=== PATIENT | female | born 1930 | race Caucasian/White ===

== ENCOUNTER 2016-03-19 22:44 | Observation (INO) | payer MEDICARE, OTHER ==
--- NOTE | 2016-03-19 23:19 | ER Document Report ---
ED Neuro Symptoms/Deficit - General Mode of Arrival: Ambulatory Information source: Patient TRAVEL OUTSIDE OF THE [place] IN LAST 30 DAYS: No - HPI Patient complains to provider of: Other - left arm and left face numbness Onset: Just prior to arrival Context: Other - see above Was STROKE ALERT Called: No Baseline Cognitive: Alert, oriented X 3 Altered sensation: LUE, L facial Associated symptoms: Other - see above <LEONORA MAK - Last Filed: 03/20/16 01:30> <MARCOS HORN - Last Filed: 03/20/16 05:39> - General Stated Complaint: LEFT ARM NUMBNESS Notes: 85 year old female presents to the ED complaining of left arm and left face numbness that started this evening. Patient states that she was initially resting in bed, but walked to the kitchen to prepare herself a bowl of grits. Patient explains that she was fumbling with the bowl and dropped the spoon when grabbing for it. Patient began to experience numbness to her left arm that radiated to her left face which lasted for approximately 30 minutes. Patient denies having difficulty moving her left fingers or hand or any difficulty talking. Patient denies being on blood thinning medication. Patient does not have a primary care provider. Patient denies having any symptoms upon examination. (LEONORA MAK) - Related Data Allergies/Adverse Reactions: No Known Allergies Allergy (Verified 12/15/15 09:21) Past Medical History - General Information source: Patient - Social History Smoking Status: Unknown if Ever Smoked Family History: None Malignancy Medical History: Reports: Hx Breast Cancer Past Surgical History: Reports: Hx Mastectomy - Right mastectomy with axillary node dissection - Immunizations Hx Diphtheria, Pertussis, Tetanus Vaccination: Yes <LEONORA MAK - Last Filed: 03/20/16 01:30> Review of Systems - Review of Systems Constitutional: No symptoms reported EENT: No symptoms reported Cardiovascular: No symptoms reported Respiratory: No symptoms reported Gastrointestinal: No symptoms reported Genitourinary: No symptoms reported Female Genitourinary: No symptoms reported Musculoskeletal: No symptoms reported Skin: No symptoms reported Hematologic/Lymphatic: No symptoms reported Neurological/Psychological: See HPI, Numbness - left arm and left face. denies : Speech impairment -: Yes All other systems reviewed and negative <LEONORA MAK - Last Filed: 03/20/16 01:30> Physical Exam - General General appearance: Alert In distress: None - HEENT Head: Normocephalic, Atraumatic Eyes: Normal Extraocular movements intact: Yes Pupils: PERRL - Respiratory Respiratory status: No respiratory distress Breath sounds: Normal - Cardiovascular Rhythm: Regular Heart sounds: Normal auscultation - Abdominal Inspection: Normal - Back Back: Normal - Extremities General upper extremity: Normal inspection, Normal ROM, Normal strength General lower extremity: Normal inspection, Normal ROM, Normal strength - Neurological Neuro grossly intact: Yes Cognition: Normal Orientation: AAOx4 [place] Coma Scale Eye Opening: Spontaneous [place] Coma Scale Verbal: Oriented [place] Coma Scale Motor: Obeys Commands [place] Coma Scale Total: 15 Speech: Normal Cranial nerves: Normal Cerebellar coordination: Normal Motor strength normal: LUE, RUE, LLE, RLE Additional motor exam normals: Equal hogshead hooper Sensory: Normal - Psychological Associated symptoms: Normal affect, Normal mood - Skin Skin Temperature: Warm Skin Moisture: Dry Skin Color: Normal <LEONORA MAK - Last Filed: 03/20/16 01:30> Course - Laboratory Result Diagrams: 03/19/16 23:08 03/19/16 23:08 <LEONORA MAK - Last Filed: 03/20/16 01:30> - Laboratory Result Diagrams: 03/19/16 23:08 03/19/16 23:08 <MARCOS HORN - Last Filed: 03/20/16 05:39> - Re-evaluation Re-evalutation: 03/20/16 Patient is an 85-year-old female who comes in with paresthesias to her left upper extremity, face, and difficulty gripping prior to arrival. Patient is not paresthesias or weakness on exam. Patient has no complaints. Symptoms are concerning for TIA. Initial blood work and head CT are within normal limits. Patient does not have a primary care doctor. No history of stroke workup. Patient will be admitted for further evaluation of her symptoms. Understands agrees with plan. (MARCOS HORN) - Vital Signs Vital signs: Temp Pulse Resp BP Pulse Ox 97.5 F 65 15 110/69 95 03/19/16 22:44 03/20/16 04:01 03/20/16 05:01 03/20/16 05:03/20/16 05:01 (MARCOS HORN) - Laboratory Laboratory results interpreted by me: 03/19/16 03/19/16 23:08 23:08 RBC 3.17 L Hgb 10.6 L Hct 32.3 L MCV 102 H RDW 15.9 H Eosinophils % 11.9 H Absolute Eosinophils 0.7 H Potassium 3.3 L Glucose 131 H Alkaline Phosphatase 28 L Total Protein 5.9 L Albumin 3.3 L (MARCOS HORN) Discharge <LEONORA MAK - Last Filed: 03/20/16 01:30> - Discharge Admitting Provider: Hospitalist Unit Admitted: Telemetry <MARCOS HORN - Last Filed: 03/20/16 05:39> - Discharge Clinical Impression: TIA (transient ischemic attack) Qualifiers: Transient cerebral ischemia type: other Qualified Code(s): G45.8 - Other transient cerebral ischemic attacks and related syndromes Condition: Stable Disposition: ADMITTED OBSERVATION Scribe Attestation: 03/20/16 05:08 I personally performed the services described in the documentation, reviewed and edited the documentation which was dictated to the scribe in my presence, and it accurately records my words and actions. (MARCOS HORN) ED [employer]/Exc Criteria - Diagnosis of TIA: -: Patient presented with transient symptoms that are now resolved and no other neurologic findings are currently present. List symptoms in comments. -: Yes -: Patient is NOT a candidate for tPA. -: Yes -: ____(put name in comment) has been consulted for admission and continued evaluation of risk factor assessment. <MARCOS HORN - Last Filed: 03/20/16 05:39>
[2016-03-19 23:24] LABS: ABSOLUTE EOSINOPHILS # (AUTO) 0.7 10^3/uL (0.0-0.6); ABSOLUTE LYMPHOCYTES (AUTO) 1.9 10^3/uL (0.5-4.7); ABSOLUTE MONOCYTES (AUTO) 0.5 10^3/uL (0.1-1.4); ABSOLUTE NEUT (AUTO) 2.9 10^3/uL (1.7-8.2); BASOPHILS % (AUTO) 0.8 % (0-2); EOSINOPHILS % (AUTO) 11.9 % (0-6); HEMATOCRIT 32.3 % (36.0-47.0); HEMOGLOBIN 10.6 g/dL (12.0-15.5); HGB HCT DIFFERENCE -0.5; LYMPHOCYTES % (AUTO) 30.9 % (13-45); MEAN CORPUSCULAR HEMOGLOBIN 33.3 pg (27.0-33.4); MEAN CORPUSCULAR HGB CONC 32.7 g/dL (32.0-36.0); MEAN CORPUSCULAR VOLUME 102 fl (80-97); PROTHROMBIN TIME 13.8 SEC (11.4-15.4); RED BLOOD COUNT 3.17 10^6/uL (3.72-5.28); RED CELL DISTRIBUTION WIDTH 15.9 % (11.5-14.0); SEGMENTED NEUTROPHILS % (AUTO) 48.4 % (42-78); WHITE BLOOD COUNT 6.1 10^3/uL (4.0-10.5)
[2016-03-19 23:47] LABS: ALANINE AMINOTRANSFERASE 9 U/L (9-52); ALBUMIN 3.3 g/dL (3.5-5.0); ALKALINE PHOSPHATASE 28 U/L (38-126); ANION GAP 9 (5-19); ASPARTATE AMINO TRANSFERASE 19 U/L (14-36); BILIRUBIN,TOTAL 1.2 mg/dL (0.2-1.3); BLOOD UREA NITROGEN 16 mg/dL (7-20); CALCIUM 8.6 mg/dL (8.4-10.2); CARBON DIOXIDE 26 mmol/L (22-30); CHLORIDE 107 mmol/L (98-107); CREATINE KINASE 96 U/L (30-135); GLUCOSE 131 mg/dL (75-110); POTASSIUM 3.3 mmol/L (3.6-5.0); SODIUM 141.9 mmol/L (137-145); TOTAL PROTEIN 5.9 g/dL (6.3-8.2)
[2016-03-19 23:57] LABS: CREATINE KINASE MB 0.53 ng/mL (<4.55)
[2016-03-20 00:09] LABS: TROPONIN I < 0.012 ng/mL
[2016-03-20] MEDS ORDERED: POTASSIUM CHLORIDE 10 MEQ TABLET.SA PO ONE (00:09)
[2016-03-20] MEDS ORDERED: ONDANSETRON HCL INJ/PF 4 MG/2 ML SDV IV PRN (08:26)
[2016-03-20] MEDS ORDERED: DOCUSATE SODIUM 100 MG CAPSULE PO PRN (08:26)
[2016-03-20] MEDS ORDERED: ASPIRIN 81 MG TABLET, ENT COATED PO PRN (08:45)
[2016-03-20] MEDS ORDERED: POTASSIUM CHLORIDE 20 MEQ/15 ML UDCUP PO ONE (08:46)
[2016-03-20] MEDS ORDERED: ENOXAPARIN SODIUM INJ 40 MG/0.4 ML DISP.SYRIN SUBCUT ONE (09:15)
--- NOTE | 2016-03-20 09:26 | PDOC H&P ---
History of Present Illness Admission Date/PCP: 03/20/16 08:27 LAURENT RIDLEY MD Patient complains of: Left upper extremity numbness History of Present Illness: JUSTUS PIMENTEL is a 85 year old female with hypertension came to the emergency room due to her left upper extremity weakness with associated numbness and tremors. It happened yesterday and eventually resolve spontaneously. The patient went to the emergency room for evaluation and was referred for observation. Head CT scan did not reveal any acute stroke. The patient denies slurring of speech, swallowing difficulty, dizziness, lower extremity weakness. Denies any headache or blurring of vision or double vision. Past Medical History Cardiac Medical History: Reports: Hypertension Malignancy Medical History: Reports: Breast Cancer Musculoskeltal Medical History: Reports: Other - Osteoporosis Psychiatric Medical History: Denies: Depression Past Surgical History Past Surgical History: Reports: Mastectomy - Right mastectomy with axillary node dissection Social History Smoking Status: Never Smoker Frequency of Alcohol Use: None Hx Recreational Drug Use: No Drugs: None Hx Prescription Drug Abuse: No Family History Family History: Malignancy Parental Family History Reviewed: Yes Children Family History Reviewed: Yes Sibling(s) Family History Reviewed.: Yes Medication/Allergy Home Medications: Raloxifene HCl [Evista 60 mg Tablet] 60 mg PO DAILY 08/20/15 Solifenacin Succinate [Vesicare] 10 mg PO DAILY 08/20/15 Aspirin [Ecotrin 81 mg EC Tablet] 81 mg PO ASDIR PRN 03/20/16 Allergies/Adverse Reactions: No Known Allergies Allergy (Verified 12/15/15 09:21) Review of Systems Constitutional: PRESENT: weakness - Left upper extremity. ABSENT: chills, fever (s), headache(s), weight gain, weight loss Eyes: ABSENT: visual disturbances Ears: ABSENT: hearing changes Nose, Mouth, and Throat: ABSENT: mouth pain, sore throat Cardiovascular: ABSENT: chest pain, dyspnea on exertion, edema, orthropnea, palpitations Respiratory: ABSENT: cough, hemoptysis Gastrointestinal: ABSENT: abdominal pain, constipation, diarrhea, hematemesis, hematochezia, nausea, vomiting Genitourinary: ABSENT: dysuria, hematuria Musculoskeletal: ABSENT: joint swelling Integumentary: ABSENT: pruritus, rash, wounds Neurological: PRESENT: focal weakness - Left upper extremity. ABSENT: abnormal gait, abnormal speech, confusion, dizziness, syncope Psychiatric: ABSENT: anxiety, depression, homidical ideation, suicidal ideation Endocrine: ABSENT: cold intolerance, heat intolerance, polydipsia, polyuria Hematologic/Lymphatic: ABSENT: easy bleeding, easy bruising Physical Exam Vital Signs: Temp Pulse Resp BP Pulse Ox 98.0 F 66 18 116/81 96 03/20/16 08:16 03/20/16 07:33 03/20/16 08:16 03/20/16 08:16 03/20/16 08:16 General appearance: PRESENT: no acute distress, thin Head exam: PRESENT: atraumatic, normocephalic Eye exam: PRESENT: conjunctiva pink, EOMI, PERRLA - Sluggish. ABSENT: scleral icterus Ear exam: PRESENT: normal external ear exam Mouth exam: PRESENT: moist, neck supple, tongue midline Neck exam: ABSENT: carotid bruit, JVD, lymphadenopathy, thyromegaly Respiratory exam: PRESENT: clear to auscultation nora. ABSENT: rales, rhonchi, wheezes Cardiovascular exam: PRESENT: RRR. ABSENT: diastolic murmur, rubs, systolic murmur Pulses: PRESENT: normal dorsalis pedis pul Vascular exam: PRESENT: normal capillary refill GI/Abdominal exam: PRESENT: normal bowel sounds, soft. ABSENT: distended, guarding, mass, organolmegaly, rebound, tenderness Rectal exam: PRESENT: deferred Extremities exam: PRESENT: full ROM. ABSENT: calf tenderness, clubbing, pedal edema Neurological exam: PRESENT: alert, awake, oriented to person, oriented to place , oriented to time, oriented to situation, CN II-XII grossly intact, other - Manual muscle testing is 4 over 5 and equal bilateral Psychiatric exam: PRESENT: appropriate affect, normal mood. ABSENT: homicidal ideation, suicidal ideation Skin exam: PRESENT: dry, intact, warm. ABSENT: cyanosis, rash Results Impressions: Chest X-Ray 03/19/16 00:00 IMPRESSION: NO ACUTE RADIOGRAPHIC FINDING IN THE CHEST. Head CT 03/19/16 00:00 IMPRESSION: MILD CHRONIC CHANGES OF ATROPHY AND MICROVASCULAR ISCHEMIA. NO ACUTE PROCESS. Assessment & Plan - Diagnosis (1) TIA (transient ischemic attack) Qualifiers: Transient cerebral ischemia type: other Qualified Code(s): G45.8 - Other transient cerebral ischemic attacks and related syndromes Is this a current diagnosis for this admission?: Yes (2) Hypokalemia Is this a current diagnosis for this admission?: Yes (3) Hyperglycemia Is this a current diagnosis for this admission?: Yes (4) Anemia of chronic disease Is this a current diagnosis for this admission?: Yes (5) Hypertension Qualifiers: Hypertension type: essential hypertension Qualified Code(s): I10 - Essential (primary) hypertension Is this a current diagnosis for this admission?: Yes (6) Osteoporosis Is this a current diagnosis for this admission?: Yes - Time Time Spent: 30 to 50 Minutes - Plan Summary Plan Summary: Patient will be placed in observation. I will put the patient on Aggrenox. Supplemental oxygen will be given and DVT prophylaxis with Lovenox and be placed. We will obtain MRI of the brain, carotid Doppler, and 2-D echocardiogram. Further testing depends and admission evaluation as outlined above. We will replace potassium and obtain hemoglobin A1c.
[2016-03-20] MEDS ORDERED: (PENDING PHARMACY ID) (Solifenacin Succinate [Vesicare] 10 MG) PO SCH (10:00)
[2016-03-20] MEDS ORDERED: ASPIRIN 325 MG TABLET, ENT COATED PO SCH (10:00)
[2016-03-20] MEDS: ASPIRIN/DIPYRIDAMOLE 25-200 MG 1 CAP.SR CPMP.12HR PO SCH ×2 (10:36→21:33)
[2016-03-20] MEDS: TOLTERODINE TARTRATE 1 MG TABLET PO SCH ×2 (10:37→21:33)
[2016-03-20] MEDS: RALOXIFENE HCL 60 MG TABLET PO SCH (11:22)
[2016-03-20] MEDS: NORMAL SALINE 1000 ML 1,000 ML IV PRN (13:00)
--- NOTE | 2016-03-20 14:57 | EKG REPORT ---
SEVERITY:- BORDERLINE ECG - SINUS RHYTHM BORDERLINE R WAVE PROGRESSION, ANTERIOR LEADS BORDERLINE T ABNORMALITIES, DIFFUSE LEADS : Confirmed by: Jr Leary 20-Mar-2016 14:56:46
--- NOTE | 2016-03-20 20:21 | XCELERA REPORT ---
[address] [address] Transthoracic Echocardiogram Report Name: JUSTUS PIMENTEL Age: 85 yrs Gender: Female : 1930 Patient Status: Inpatient Patient Location: \S\[facility]\S\A Study Date: 03/20/2016 09:36 AM Height: 62 in Weight: 103 lb BSA: 1.4 m2 Procedure: A complete two-dimensional transthoracic echocardiogram was performed (2D, M-mode, spectral and color flow Doppler). The study was technically difficult with many images being suboptimal in quality. Reason For Study: cva, hYPERTENSIVE HEARTY DISEASE Ordering Physician: BIANCA LOONEY Performed By: Kali Beverly Interpretation Summary The study was technically difficult with many images being suboptimal in quality. Left ventricular systolic function is low normal. There is borderline concentric left ventricular hypertrophy. The left ventricle is grossly normal size. Doppler measurements suggest impaired left ventricular relaxation, which is associated with grade I/IV or mild diastolic dysfunction Wall motion cannot be accurately commented on, but no definite regional wall motion abnormalities noted. The right ventricular systolic function is normal. The left atrial size is normal. The right atrium is normal in size There is no mitral valve stenosis. There is a trace to mild amount of mitral regurgitation There is a trace to mild amount of aortic regurgitation There is no aortic valve stenosis There is a trace amount of tricuspid regurgitation There is mild pulmonary hypertension by echo Right ventricular systolic pressure is estimated to be elevated at 30- 40mmHg. There is no pericardial effusion. Consider WOO if clinically indicated. May consider mobile cardiac telemetry monitoring (MCT) for ruling out transient AFIB. MMode/2D Measurements \T\ Calculations RVDd: 2.3 cm LVIDd: 4.5 cm FS: 25.8 % Ao root diam: 3.3 cm IVSd: 0.75 cm LVIDs: 3.3 cm EDV(Teich): 90.9 ml LVPWd: 0.77 cm ESV(Teich): 44.6 ml Ao root area: 8.7 cm2 EF(Teich): 50.9 % LA dimension: 3.0 cm Doppler Measurements \T\ Calculations MV E max john: MV P1/2t max john: Ao V2 max: LV V1 max P.8 cm/sec 56.8 cm/sec 121.6 cm/sec 2.0 mmHg MV A max john: MV P1/2t: 71.8 msec Ao max PG: LV V1 max: 107.6 cm/sec 5.9 mmHg 70.1 cm/sec MV E/A: 0.52 MVA(P1/2t): 3.1 cm2 MV dec slope: 231.6 cm/sec2 MV dec time: 0.24 sec PA V2 max: PI end-d john: TR max john: RAP systole: 68.1 cm/sec 65.0 cm/sec 256.5 cm/sec 10.0 mmHg PA max P.9 mmHg TR max P.3 mmHg RVSP(TR): 36.3 mmHg Left Ventricle The left ventricle is grossly normal size. There is borderline concentric left ventricular hypertrophy. Left ventricular systolic function is low normal. Doppler measurements suggest impaired left ventricular relaxation, which is associated with grade I/IV or mild diastolic dysfunction. Wall motion cannot be accurately commented on, but no definite regional wall motion abnormalities noted. Right Ventricle The right ventricle is grossly normal size. There is normal right ventricular wall thickness. The right ventricular systolic function is normal. Atria The right atrium is normal in size. The left atrial size is normal. Interarterial septum not well visualized and not well dopplered. Cannot comment on ASD/PFO presence. Mitral Valve The mitral valve leaflets are sclerotic, but show no functional abnormalities. There is no mitral valve stenosis. There is a trace to mild amount of mitral regurgitation. Aortic Valve The aortic valve is not well visualized secondary to technical limitations. There is no aortic valve stenosis. There is a trace to mild amount of aortic regurgitation. Tricuspid Valve The tricuspid valve is not well visualized, but is grossly normal. There is no tricuspid stenosis. There is a trace amount of tricuspid regurgitation. There is mild pulmonary hypertension by echo. Right ventricular systolic pressure is estimated to be elevated at 30-40mmHg. Pulmonic Valve The pulmonic valve is not well visualized. Great Vessels The aortic root is not well visualized. The inferior vena cava appeared normal and decreased > 50% with respiration (RAP 5-10 mmHg). Effusions There is no pericardial effusion. Incidental Findings Consider WOO if clinically indicated. May consider mobile cardiac telemetry monitoring (MCT) for ruling out transient AFIB. : BIANCA LOONEY > Jr Leary
[2016-03-20] MEDS: ACETAMINOPHEN 325 MG TABLET PO PRN (20:42)
[2016-03-20] MEDS: ATORVASTATIN CALCIUM 10 MG TABLET PO SCH (21:34)
[2016-03-21] MEDS: ACETAMINOPHEN 325 MG TABLET PO PRN (04:57)
[2016-03-21] MEDS: LANSOPRAZOLE 30 MG TAB.RAP.DR PO SCH (05:43)
[2016-03-21 06:02] LABS: ANION GAP 9 (5-19); BLOOD UREA NITROGEN 15 mg/dL (7-20); CALCIUM 8.9 mg/dL (8.4-10.2); CARBON DIOXIDE 22 mmol/L (22-30); CHLORIDE 111 mmol/L (98-107); CREATININE RESULT 0.71 mg/dL (0.52-1.25); GLUCOSE 89 mg/dL (75-110); POTASSIUM 3.9 mmol/L (3.6-5.0); SODIUM 142.2 mmol/L (137-145)
[2016-03-21] MEDS: ENOXAPARIN SODIUM INJ 40 MG/0.4 ML DISP.SYRIN SUBCUT SCH (08:21)
[2016-03-21] MEDS: RALOXIFENE HCL 60 MG TABLET PO SCH (10:13)
[2016-03-21] MEDS: TOLTERODINE TARTRATE 1 MG TABLET PO SCH ×2 (10:13→21:23)
[2016-03-21] MEDS: ASPIRIN/DIPYRIDAMOLE 25-200 MG 1 CAP.SR CPMP.12HR PO SCH ×2 (10:13→21:24)
--- NOTE | 2016-03-21 10:49 | PDOC PROGRESS REPORT ---
Subjective Progress Note for:: 03/21/16 Subjective:: Patient denies any worsening weakness. Left upper extremity symptoms reported yesterday result. Patient however reports she has balance issues for over a month. Denies any new weaknesses. No slurring of speech. No nausea or vomiting. No chills or fever. Physical Exam Vital Signs: Temp Pulse Resp BP Pulse Ox 97.2 F 86 20 129/69 H 98 03/21/16 07:39 03/21/16 08:00 03/21/16 08:00 03/21/16 08:00 03/21/16 08:00 Intake & Output 03/20/16 03/21/16 03/22/16 06:59 06:59 06:59 Intake Total 1745 Balance 1745 Weight 47.6 kg General appearance: PRESENT: no acute distress, cooperative Head exam: PRESENT: normocephalic Eye exam: PRESENT: EOMI Mouth exam: PRESENT: moist, neck supple Neck exam: ABSENT: JVD Respiratory exam: PRESENT: clear to auscultation nora, unlabored. ABSENT: rhonchi, wheezes Cardiovascular exam: PRESENT: RRR. ABSENT: gallop GI/Abdominal exam: PRESENT: normal bowel sounds, soft. ABSENT: distended, tenderness Extremities exam: PRESENT: other - Trace pretibial edema Neurological exam: PRESENT: alert, awake Psychiatric exam: PRESENT: normal mood Skin exam: PRESENT: dry, warm. ABSENT: cyanosis Results Laboratory Results: 03/21/16 05:07 03/21/16 05:07 Sodium 142.2 Potassium 3.9 Chloride 111 H Carbon Dioxide 22 Anion Gap 9 BUN 15 Creatinine 0.71 Est GFR ( Amer) > 60 Est GFR (Non-Af Amer) > 60 Glucose 89 Calcium 8.9 Impressions: Chest X-Ray 03/19/16 00:00 IMPRESSION: NO ACUTE RADIOGRAPHIC FINDING IN THE CHEST. Head CT 03/19/16 00:00 IMPRESSION: MILD CHRONIC CHANGES OF ATROPHY AND MICROVASCULAR ISCHEMIA. NO ACUTE PROCESS. Head MRI 03/20/16 00:00 IMPRESSION: Acute nonhemorrhagic lacunar infarct left cerebellum. Carotid Doppler Study 03/20/16 08:31 IMPRESSION: NO HEMODYNAMICALLY SIGNIFICANT STENOSIS. Assessment & Plan - Diagnosis (1) Cerebellar stroke Is this a current diagnosis for this admission?: Yes (2) TIA (transient ischemic attack) Qualifiers: Transient cerebral ischemia type: other Qualified Code(s): G45.8 - Other transient cerebral ischemic attacks and related syndromes Is this a current diagnosis for this admission?: Yes (3) Hypokalemia Is this a current diagnosis for this admission?: Yes (4) Hyperglycemia Is this a current diagnosis for this admission?: Yes (5) Anemia of chronic disease Is this a current diagnosis for this admission?: Yes (6) Hypertension Qualifiers: Hypertension type: essential hypertension Qualified Code(s): I10 - Essential (primary) hypertension Is this a current diagnosis for this admission?: Yes (7) Osteoporosis Is this a current diagnosis for this admission?: Yes - Time Time Spent with patient: 15-24 minutes - Plan Summary Plan Summary: Continue Aggrenox. Continue physical therapy. We will arrange for home health physical therapy and a front-wheeled walker. Blood pressure has been stable and normal. We will check lipid panel. Continue supportive care. If the patient remains stable we will discharge home in the morning. She is refusing to go to rehabilitation.
[2016-03-21] MEDS: ATORVASTATIN CALCIUM 10 MG TABLET PO SCH (21:24)
[2016-03-22] MEDS: NORMAL SALINE 1000 ML 1,000 ML IV PRN (02:41)
[2016-03-22] MEDS: LANSOPRAZOLE 30 MG TAB.RAP.DR PO SCH (05:31)
[2016-03-22 06:57] LABS: CHOLESTEROL 137.21 mg/dL (0-200); Direct HDL 38 mg/dL (>40); TRIGLYCERIDES 67 mg/dL (<150)
[2016-03-22 07:07] LABS: DIRECT LDL 86 mg/dL (<100)
[2016-03-22] MEDS: ENOXAPARIN SODIUM INJ 40 MG/0.4 ML DISP.SYRIN SUBCUT SCH (09:17)
[2016-03-22] MEDS: ASPIRIN/DIPYRIDAMOLE 25-200 MG 1 CAP.SR CPMP.12HR PO SCH (09:18)
[2016-03-22] MEDS: TOLTERODINE TARTRATE 1 MG TABLET PO SCH (09:19)
[2016-03-22] MEDS: RALOXIFENE HCL 60 MG TABLET PO SCH (09:19)
[2016-03-22 11:16] VITALS: BP 120/63
--- NOTE | 2016-03-22 11:37 | PDOC DISCHARGE SUMMARY ---
[id number] LAURENT RIDLEY MD Discharge Date: 03/22/16 - Discharge Diagnosis (1) Cerebellar stroke Is this a current diagnosis for this admission?: Yes (2) TIA (transient ischemic attack) Is this a current diagnosis for this admission?: Yes (3) Hypokalemia Is this a current diagnosis for this admission?: Yes (4) Hyperglycemia Is this a current diagnosis for this admission?: Yes (5) Anemia of chronic disease Is this a current diagnosis for this admission?: Yes (6) Hypertension Is this a current diagnosis for this admission?: Yes (7) Osteoporosis Is this a current diagnosis for this admission?: Yes - Additional Information Discharge Diet: Cardiac - low-fat low-salt Discharge Activity: Activity As Tolerated, Balance Activity w/Rest Home Medications: Raloxifene HCl [Evista 60 mg Tablet] 60 mg PO DAILY 08/20/15 Solifenacin Succinate [Vesicare] 10 mg PO DAILY 08/20/15 Aspirin [Ecotrin 81 mg EC Tablet] 81 mg PO ASDIR PRN 03/20/16 Aspirin/Dipyridamole [Aggrenox 25 mg/200 mg Capsule SA] 1 cap.sr PO Q12 #60 cpmp.12hr 03/22/16 Atorvastatin Calcium [Lipitor 10 mg Tablet] 10 mg PO QHS #30 tablet 03/22/16 Additional Information: Home health for physical therapy, front-wheeled walker for ambulation History of Present Illness Patient complains of: Left upper extremity weakness History of Present Illness: JUSTUS PIMENTEL is a 85 year old female with hypertension came to the emergency room due to her left upper extremity weakness with associated numbness and tremors. It happened yesterday and eventually resolve spontaneously. The patient went to the emergency room for evaluation and was referred for observation. Head CT scan did not reveal any acute stroke. The patient denies slurring of speech, swallowing difficulty, dizziness, lower extremity weakness. Denies any headache or blurring of vision or double vision. Hospital Course Hospital Course: The patient was admitted to telemetry. The patient was continued on aspirin. Patient's left upper extremity weakness resolved. However she reports gait imbalance for about a week. Carotid Doppler shows no significant hemodynamic stenosis. 2-D echocardiogram shows a normal ejection fraction with no significant valvular defect. Physical therapy was instituted and the patient did well with the rolling walker. Physical therapy recommended home health PT. This was then scheduled. MRI of the brain eventually perform showing cerebellar lacunar infarction on the left. Patient was informed and this may have occurred prior to the patient's transient ischemic attack symptoms. She refused subacute rehab facility. Patient was given Aggrenox in addition to aspirin. library monitor remained sinus. Patient wanted to go home and continue therapy on an outpatient basis. Family was informed of her diagnosis. She has caregivers at home. The rest of the hospital stays unremarkable. Physical Exam Vital Signs: Temp Pulse Resp BP Pulse Ox 98.6 F 73 16 134/69 H 94 03/22/16 10:44 03/22/16 10:44 03/22/16 10:44 03/22/16 10:44 03/22/16 10:44 Intake & Output 03/21/16 03/22/16 03/23/16 06:59 06:59 06:59 Intake Total 1745 1748 Balance 1745 1748 Weight 47.6 kg 47.7 kg General appearance: PRESENT: no acute distress, cooperative Head exam: PRESENT: normocephalic Eye exam: PRESENT: EOMI Mouth exam: PRESENT: moist, neck supple Neck exam: ABSENT: JVD Respiratory exam: PRESENT: clear to auscultation nora Cardiovascular exam: PRESENT: RRR. ABSENT: gallop GI/Abdominal exam: PRESENT: normal bowel sounds, soft. ABSENT: distended, tenderness Extremities exam: ABSENT: pedal edema Neurological exam: PRESENT: alert, awake, oriented to situation, other - Manual muscle testing is 4 over 5 bilaterally and equal Psychiatric exam: PRESENT: normal mood. ABSENT: agitated, anxious Skin exam: PRESENT: dry, warm. ABSENT: cyanosis Results Laboratory Results: 03/21/16 05:07 03/22/16 05:35 Triglycerides 67 Cholesterol 137.21 LDL Cholesterol Direct 86 VLDL Cholesterol 13.0 HDL Cholesterol 38 L Impressions: Chest X-Ray 03/19/16 00:00 IMPRESSION: NO ACUTE RADIOGRAPHIC FINDING IN THE CHEST. Head CT 03/19/16 00:00 IMPRESSION: MILD CHRONIC CHANGES OF ATROPHY AND MICROVASCULAR ISCHEMIA. NO ACUTE PROCESS. Head MRI 03/20/16 00:00 IMPRESSION: Acute nonhemorrhagic lacunar infarct left cerebellum. Carotid Doppler Study 03/20/16 08:31 IMPRESSION: NO HEMODYNAMICALLY SIGNIFICANT STENOSIS. Qualifiers PATEINT BEING DISCHARGED WITH ANY OF THE FOLLOWING DIAGNOSIS?: Stroke Stroke Pt being discharged on Anti-thrombolytic therapy?: No Reason(s) for not prescribing Anti-thrombolytic therapy:: Not indicated Stroke Pt being discharged on Anti-coagulation therapy?: Yes Stroke Pt being discharged on Statins?: Yes Plan Discharge Plan: Appointment with primary care physician in 3-5 days. Time Spent: Less than 30 Minutes
== END 2016-03-22 11:00 | disposition home or self-care (01) ==
LOC: ER 22:44 → UNDOADMOB 03-20 05:27 → EH 03-20 05:27 → 3W 03-20 13:27
PROVIDERS: ADMIT Family Medicine; ATTEND Family Medicine
DX: I63.9 Cerebral infarction, unspecified (principal); E87.6 Hypokalemia; R73.9 Hyperglycemia, unspecified; I10 Essential (primary) hypertension; M81.0 Age-related osteoporosis without current pathological fracture; Z79.82 Long term (current) use of aspirin; Z85.3 Personal history of malignant neoplasm of breast; Z90.11 Acquired absence of right breast and nipple; Z79.810 Long term (current) use of selective estrogen receptor modulators (SERMs)
CPT/HCPCS: 93005; 99285; 96372; 36415 ×4; 82553; 82550; 85025; 85610; 85730; 80048; 80053; 84484; 83036; 80061; 93306; 93880; 70551; 71010; 70450; 93010; 97163; G0378 ×4; A9270 ×17; J1650 ×3; J3490 ×3; J2405; J7030 ×2; G8978; G8979

== ENCOUNTER 2016-04-02 11:01 | Emergency (ER) | payer MEDICARE, OTHER ==
[2016-04-02 11:35] LABS: PARTIAL THROMBOPLASTIN TIME 29.2 SEC (23.5-35.8)
[2016-04-02 11:36] LABS: ABSOLUTE EOSINOPHILS # (AUTO) 0.4 10^3/uL (0.0-0.6); ABSOLUTE LYMPHOCYTES (AUTO) 1.6 10^3/uL (0.5-4.7); ABSOLUTE MONOCYTES (AUTO) 0.6 10^3/uL (0.1-1.4); BASOPHILS % (AUTO) 0.5 % (0-2); EOSINOPHILS % (AUTO) 5.5 % (0-6); HEMATOCRIT 34.5 % (36.0-47.0); HEMOGLOBIN 10.7 g/dL (12.0-15.5); HGB HCT DIFFERENCE -2.4; LYMPHOCYTES % (AUTO) 20.9 % (13-45); MEAN CORPUSCULAR HEMOGLOBIN 32.5 pg (27.0-33.4); MEAN CORPUSCULAR VOLUME 105 fl (80-97); MONOCYTES % (AUTO) 7.6 % (3-13); RED BLOOD COUNT 3.28 10^6/uL (3.72-5.28); RED CELL DISTRIBUTION WIDTH 15.5 % (11.5-14.0); SEGMENTED NEUTROPHILS % (AUTO) 65.5 % (42-78); WHITE BLOOD COUNT 7.7 10^3/uL (4.0-10.5)
[2016-04-02 11:38] LABS: PROTHROMBIN TIME 14.2 SEC (11.4-15.4)
[2016-04-02 11:49] LABS: ALANINE AMINOTRANSFERASE 13 U/L (9-52); ALBUMIN 3.8 g/dL (3.5-5.0); ALKALINE PHOSPHATASE 33 U/L (38-126); ANION GAP 12 (5-19); ASPARTATE AMINO TRANSFERASE 13 U/L (14-36); BILIRUBIN,TOTAL 0.8 mg/dL (0.2-1.3); BLOOD UREA NITROGEN 21 mg/dL (7-20); CALCIUM 8.8 mg/dL (8.4-10.2); CARBON DIOXIDE 24 mmol/L (22-30); CHLORIDE 108 mmol/L (98-107); CREATINE KINASE 28 U/L (30-135); CREATININE RESULT 0.97 mg/dL (0.52-1.25); GLUCOSE 54 mg/dL (75-110); SODIUM 143.9 mmol/L (137-145); TOTAL PROTEIN 6.1 g/dL (6.3-8.2)
--- NOTE | 2016-04-02 11:51 | ER Document Report ---
ED Neuro Symptoms/Deficit - General Stated Complaint: MENTAL STATUS Information source: Patient Notes: Patient is a very sweet 85-year-old female with past medical history as recorded who presents today feeling "a little lightheaded" with some numbness and weakness to the right hand only here this occurred around 5 AM. She states it lasted around one hour and then resolved. She denies any headache, neck pain , chest pain, abdominal pain, weakness or numbness. She denies any fevers or dysuria, or flank pain. Patient supposedly was just discharged from a similar event around a week ago according to the patient. She denies any symptoms at this time. TRAVEL OUTSIDE OF THE [place] IN LAST 30 DAYS: No - HPI Patient complains to provider of: Other - See above Onset: Other - See above Awoke with symptoms: Yes Symptoms are: Noted on awakening Duration: Better, Gone now Quality of pain: No pain Severity: Mild Pain Level: Denies Context: None Loss of consciousness: No loss of consciousness Baseline Cognitive: Alert, oriented X 3 Baseline Gait: Walks w/o assistance Alert To: Name/Voice Patient Orientation: Person, Place, Time Altered sensation: RUE Vision problem/glaucoma: No Associated symptoms: Other - See above Similar symptoms previously: Yes Recently seen / treated by doctor: Yes - Related Data Allergies/Adverse Reactions: No Known Allergies Allergy (Verified 04/02/16 11:31) Past Medical History - General Information source: Patient - Social History Smoking Status: Unknown if Ever Smoked Cigarette use (# per day): No Chew tobacco use (# tins/day): No Smoking Education Provided: No Frequency of alcohol use: None Family History: Malignancy - Past Medical History Cardiac Medical History: Reports: Hx Hypertension Malignancy Medical History: Reports: Hx Breast Cancer Psychiatric Medical History: Denies: Hx Depression Past Surgical History: Reports: Hx Mastectomy - Right mastectomy with axillary node dissection - Immunizations Hx Diphtheria, Pertussis, Tetanus Vaccination: Yes Review of Systems - Review of Systems Constitutional: denies: Fever EENT: denies: Eye discharge, Nose discharge Cardiovascular: denies: Chest pain, Palpitations, Heart racing, Syncope Respiratory: denies: Cough, Short of breath Gastrointestinal: denies: Vomiting Genitourinary: denies: Dysuria Musculoskeletal: denies: Leg swelling Skin: Other - no hives. denies: Rash Neurological/Psychological: Other - no slurred speech -: Yes All other systems reviewed and negative Physical Exam - Vital signs Vitals: Pulse Resp BP Pulse Ox 79 18 114/69 100 04/02/16 11:07 04/02/16 11:07 04/02/16 11:07 04/02/16 11:07 Notes: Reviewed vital signs and nursing note as charted by RN. CONSTITUTIONAL: Alert and oriented and responds appropriately to questions. Well -appearing; well-nourished HEAD: Normocephalic; atraumatic EYES: PERRL; Conjunctivae clear, sclerae non-icteric ENT: Normal nose; no rhinorrhea; moist mucous membranes; pharynx without lesions noted NECK: Supple without meningismus; non-tender; no carotid bruits; no cervical lymphadenopathy, no masses CARD: Regular rate and rhythm; no murmurs, no clicks, no rubs, no gallops; symmetric distal pulses RESP: Normal chest excursion without splinting or tachypnea; breath sounds clear and equal bilaterally; no wheezes, no rhonchi, no rales ABD/GI: Normal bowel sounds; non-distended; soft, non-tender, no rebound, no guarding; no palpable organomegaly or masses BACK: The back appears normal and is non-tender to palpation, there is no CVA tenderness EXT: Normal ROM in all joints; non-tender to palpation; no cyanosis, no effusions, no edema SKIN: Normal color for age and race; warm; dry; good turgor; capillary refill < 2 seconds; no acute lesions noted NEURO: CN II through XII are intact. Patient has 5 out of 5 bilateral upper and lower extremity strength with sensation intact to light touch. PSYCH: The patient's mood and manner are appropriate. Grooming and personal hygiene are appropriate. Course - Re-evaluation Re-evalutation: 04/02/16 11:58 Patient was called a code stroke upon arrival. The stroke was activated. Radiologist called and states that the CT scan shows no acute abdomen allergies. Possible meningioma that is present. NIH score is 0. I do not believe the patient is therefore TPA candidate given the onset of symptoms, and the patient being symptom free at this time within NIH score of 0. Patient states she did not take her aspirin today. 325 has been provided. EKG shows a heart of 79, normal sinus rhythm, normal axis, no obvious ST elevation or depression. Flattened T waves in leads V4 and V5. Inverted T waves in lead 3. Old EKG from 03/19/2016 shows no obvious appreciable change. 04/02/16 12:23 Still no change in mental status. Still no weakness or numbness. I reviewed the patient's previous hospitalization recently showing a normal carotid Doppler and 2-D echo with an MRI showing a possible left cerebellar lacunar infarct. 04/02/16 14:30 MRI of the head has been performed. Still no focal logical deficits. Vital signs are stable. Glucose as recorded. Patient is not a diabetic. We have provided some nourishment and we'll obtain a urinalysis. 04/02/16 15:53 MRI of the brain as recorded. No new acute lesions. Patient still has no focal neurological deficits. Blood pressure is very stable. I have called and spoken to the hospitalist who states that there are no real new studies that they would be able to perform here in this facility. He recommended possibly an outpatient WOO. I called and spoke directly to the patient's primary care physician as well as the patient's daughter and they both are happy with the patient going home and following up with the primary care physician as an outpatient. I believe this is reasonable given the history, physical, recent imaging, and the patient's current state. Accu-Chek recorded repeated is 93. Patient denies any symptoms at this time. - Vital Signs Vital signs: Temp Pulse Resp BP Pulse Ox 97.8 F 79 18 114/69 100 04/02/16 13:03 04/02/16 13:03 04/02/16 13:03 04/02/16 13:03 04/02/16 13:03 - Laboratory Result Diagrams: 04/02/16 11:23 04/02/16 11:23 Laboratory results interpreted by me: 04/02/16 04/02/16 04/02/16 11:18 11:23 11:23 RBC 3.28 L Hgb 10.7 L Hct 34.5 L MCV 105 H MCHC 31.0 L RDW 15.5 H Chloride 108 H BUN 21 H Est GFR (Non-Af Amer) 54 L Glucose 54 L POC Glucose 63 L AST 13 L Alkaline Phosphatase 33 L Creatine Kinase 28 L Total Protein 6.1 L Critical Care Note - Critical Care Note Total time excluding time spent on procedures (mins): 35 Discharge - Discharge Clinical Impression: Numbness of right hand Condition: Good Disposition: HOME, SELF-CARE Additional Instructions: Please come back immediately with any return of any weakness or numbness, any fevers or vomiting, any chest pain, shortness of breath, or any other acute problems. Please make sure that you follow-up with your primary care physician by calling [phone] to schedule an appointment for this coming week.
[2016-04-02 12:00] LABS: CREATINE KINASE MB 0.38 ng/mL (<4.55)
[2016-04-02] MEDS ORDERED: ASPIRIN 325 MG TABLET PO ONE (12:00)
[2016-04-02 12:02] LABS: TROPONIN I < 0.012 ng/mL
--- NOTE | 2016-04-02 12:54 | EKG REPORT ---
SEVERITY:- BORDERLINE ECG - SINUS RHYTHM BORDERLINE T WAVE ABNORMALITIES : Confirmed by: Yuliya Pineda MD 02-Apr-2016 12:53:38
[2016-04-02 17:08] LABS: APPEARANCE,URINE CLOUDY; BILIRUBIN,URINE NEGATIVE (NEGATIVE); GLUCOSE, URINE NEGATIVE (NEGATIVE); KETONES,URINE NEGATIVE (NEGATIVE); LEUKOCYTE ESTERASE,URINE MODERATE (NEGATIVE); NITRITE,URINE NEGATIVE (NEGATIVE); PROTEIN,URINE 100 mg/dL (NEGATIVE); URINE SPECIFIC GRAVITY 1.011; UROBILINOGEN,URINE NEGATIVE mg/dL (<2.0)
[2016-04-02 17:41] VITALS: BP 120/66
== END 2016-04-02 17:30 | disposition home or self-care (01) ==
LOC: ER 11:01
DX: R20.0 Anesthesia of skin (principal); I10 Essential (primary) hypertension; Z79.82 Long term (current) use of aspirin; Z85.3 Personal history of malignant neoplasm of breast
CPT/HCPCS: 93005; 99291; 36415; 82553; 82962; 82550; 85025; 85610; 85730; 80053; 81001; 84484; 70551; 71010; 70450; 93010; A9270

== ENCOUNTER → 2016-04-05 | Outpatient (CLI) | payer MEDICARE, OTHER | LOC: RAD 15:16 | PROVIDERS: ATTEND Internal Medicine Medical Oncology | DX: Z85.3 Personal history of malignant neoplasm of breast (principal); Z90.11 Acquired absence of right breast and nipple | CPT/HCPCS: 78815; A9552 ==

== ENCOUNTER 2016-05-07 08:17 | Emergency (ER) | payer MEDICARE, OTHER ==
[2016-05-07] MEDS ORDERED: LIDOCAINE 1% INJ-PF (10 MG/ML) 30 ML SDV INJ ONE (08:49)
--- NOTE | 2016-05-07 09:20 | ER Document Report ---
ED Head/Face/Scalp Injury - General Chief Complaint: Head Injury Stated Complaint: FALL/HEAD PAIN Mode of Arrival: Ambulatory Information source: Patient Notes: 86-year-old female presents to the emergency department complaining of laceration to right eyebrow. Patient reports was at home when she tripped on her clothing, lost her footing, and fell striking the right side of her face/ head on her hardwood floor. 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 Denies loss of consciousness, vision changes, head or neck pain, extremity weakness or paresthesias. TRAVEL OUTSIDE OF THE [place] IN LAST 30 DAYS: No - HPI Patient complains to provider of: Laceration Injury to: Eyebrow Occurred: This morning Where: Home Timing: Still present Context: Fell Loss consciousness: No loss of consciousness Remembers: Injury, Coming to hospital - Related Data Allergies/Adverse Reactions: No Known Allergies Allergy (Verified 05/07/16 08:21) Past Medical History - General Information source: Patient - Social History Smoking Status: Never Smoker Chew tobacco use (# tins/day): No Frequency of alcohol use: None Drug Abuse: None Lives with: Family Family History: Malignancy Patient has suicidal ideation: No Patient has homicidal ideation: No - Past Medical History Cardiac Medical History: Reports: Hx Hypertension Renal/ Medical History: Denies: Hx Peritoneal Dialysis Malignancy Medical History: Reports: Hx Breast Cancer GI Medical History: Reports: Hx Gastroesophageal Reflux Disease Psychiatric Medical History: Denies: Hx Depression Past Surgical History: Reports: Hx Mastectomy - Right mastectomy with axillary node dissection - Immunizations Hx Diphtheria, Pertussis, Tetanus Vaccination: Yes Review of Systems - Review of Systems Constitutional: No symptoms reported EENT: See HPI Cardiovascular: No symptoms reported Respiratory: No symptoms reported Gastrointestinal: No symptoms reported Genitourinary: No symptoms reported Female Genitourinary: No symptoms reported Musculoskeletal: No symptoms reported Skin: See HPI Hematologic/Lymphatic: No symptoms reported Neurological/Psychological: No symptoms reported -: Yes All other systems reviewed and negative Physical Exam - Vital signs Vitals: Temp Pulse Resp BP Pulse Ox 97.6 F 97 16 108/59 L 99 05/07/16 08:23 05/07/16 08:23 05/07/16 08:23 05/07/16 08:23 05/07/16 08:23 Interpretation: Normal - General General appearance: Appears well, Alert - HEENT Head: Normocephalic, Open wounds. No: Mix's sign, Racoon's eyes Eyes: Normal Conjunctiva: Normal Extraocular movements intact: Yes Eyelashes: Normal Pupils: PERRL Nerve palsy: No Visual osorio normal: Yes Ears: Normal External canal: Normal Tympanic membrane: Normal Sinus: Normal Nasal: Normal Mouth/Lips: Normal Mucous membranes: Normal, Moist Pharynx: Normal. No: Blood in hypopharynx, Erythema, Exudate, Peritonsillar abscess, Post nasal drainage, Retropharyngeal abscess, Tonsillar hypertrophy, Uvular edema, Potential airway comprom., Other Neck: Normal. No: Anterior cervical chain, Posterior cervical chain, Lymphadenopathy, Meningismus, Subcutaneous emphysema - Respiratory Respiratory status: No respiratory distress Chest status: Nontender Breath sounds: Normal Chest palpation: Normal - Cardiovascular Rhythm: Regular Heart sounds: Normal auscultation Murmur: No Pulses: Normal: Radial Normal capillary refill: Yes - Abdominal Inspection: Normal Distension: No distension Bowel sounds: Normal Tenderness: Nontender Organomegaly: No organomegaly - Back Back: Normal, Nontender. No: Tender, Deformity/step-off, CVA tenderness, Vertebra tenderness, Scars, Scoliosis, Wounds, Other - Extremities General upper extremity: Normal inspection, Nontender, Normal color, Normal ROM , Normal strength, Normal temperature. No: Tender, Edema General lower extremity: Normal inspection, Nontender, Normal color, Normal ROM , Normal strength, Normal temperature, Normal weight bearing. No: Tender, Edema , Gricelda's sign Knee: Abrasion - Mild superficial abrasion to superior anterior right knee. No tenderness, pain, swelling, bruising. Full range of motion and neurovascular function intact.. 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 Mild localized tenderness and surrounding bruising/ hematoma. No instability or depression. No involvement of the eye structures and extraocular movements intact. Course - Re-evaluation Re-evalutation: 05/07/16 10:20 Patient hemodynamically stable, in no distress, neurologically intact. CT scan shows facial soft tissue hematoma without acute fracture or intracranial injury. Right eyebrow laceration thoroughly irrigated/cleansed and wound edges approximated with interrupted sutures. Patient tolerated well. Patient appears stable for discharge and agrees with home care, follow-up with PCP, and ED return precautions. - Vital Signs Vital signs: Temp Pulse Resp BP Pulse Ox 98.6 F 86 20 134/66 H 97 05/07/16 10:45 05/07/16 10:45 05/07/16 10:45 05/07/16 10:45 05/07/16 10:45 - Diagnostic Test Radiology reviewed: Image reviewed, Reports reviewed Procedures - Laceration/Wound Repair Right Face Time completed: 10:05 Wound length (cm): 2 Wound's Depth, Shape: Superficial, Linear Laceration pre-procedure: Sterile PPE donned, Sterile drapes applied Anesthetic type: 1% Lidocaine Volume Anesthetic (mLs): 3 Wound explored: Clean, No foreign body removed Irrigated w/ Saline (mLs): 500 Wound Debrided: Minimal Wound Repaired With: Sutures Suture Size/Type: 5:0, Nylon Number of Sutures: 3 Layer Closure?: No Post-procedure wound care: Sterile dressing applied - With bacitracin ointment Post-procedure NV exam normal: Yes Complications: No Adult Head Front/Back picture: 1 - Laceration Discharge - Discharge Clinical Impression: Fall Qualifiers: Encounter type: initial encounter Qualified Code(s): W19.XXXA - Unspecified fall, initial encounter Eyebrow laceration Qualifiers: Encounter type: initial encounter Laterality: right Qualified Code(s): S01.111A - Laceration without foreign body of right eyelid and periocular area, initial encounter Facial contusion Qualifiers: Encounter type: initial encounter Qualified Code(s): S00.83XA - Contusion of other part of head, initial encounter Condition: Stable Disposition: HOME, SELF-CARE Additional Instructions: HEAD INJURY PRECAUTIONS: At this point, there is no evidence that your head injury is serious. Observation is necessary, however. Take only clear liquids for the first few hours, unless told otherwise by the doctor. If no pain medication was prescribed, you may take acetaminophen according to the directions on the bottle. Do not take any medication that may alter your level of alertness (unless you've discussed it with the doctor first) . Limit activity for the first 24 hours. Bed rest is best. During the first 24 hours, check to see approximately every two to three hours that the patient is easily arousable, responds normally, and can perform common tasks such as walking without difficulty. Contact your doctor or go to the hospital if any of the following things occur: Persistent vomiting, difficulty in arousing the patient, worsening or continued headache, or failure to improve as expected. Head injuries can cause symptoms that persist for a few days or even a few weeks. CONTUSION: Your injury has resulted in a contusion -- a crushing of the deep tissues. No injury to important structures was detected during the physician's exam. Contusions vary in the amount of pain they cause, and in the length of time required for healing. Typically, the area will become bruised, and will remain painful to touch for two or three weeks. However, most patients are back to working and playing within a few days. After the initial period of rest and cold-packs, your symptoms (together with the doctor's recommendations) will determine how rapidly you can get back to full activity. Usually this means "do what feels okay, but don't do things that hurt." If re-examination was recommended, it's important to follow up as instructed. Call the doctor or return any time if pain increases, if swelling becomes severe, if you develop numbness or weakness in an injured extremity, or if any other alarming symptoms occur. Facial Laceration A laceration on the face usually heals quickly. Our treatment goal will be to avoid an unsightly scar or stitch-jackson. Your cut has been closed with the best techniques to avoid scarring, but a great deal depends on how well you protect the laceration -- and on your inherited tendency to scar. As facial cuts are usually caused by a blunt injury, it's usually best to rest for a day to avoid swelling. Do not allow any bumping or rubbing of the area. Keep the stitches dry. Follow the treatment plan the doctor has discussed with you and DO NOT DELAY getting the stitches out. Once stitches are removed, continue to protect the area from trauma and sunlight (use a sunscreen) for about six months. If any signs of infection occur (swelling, redness, increasing tenderness, red streaks, tender lumps in the neck or near the ear on the side of the laceration, or fever), see the doctor immediately. ICE PACKS: Apply ice packs frequently against the painful area. Many different schedules are recommended, such as "20 minutes on, 20 minutes off" or "one hour ice, two hours rest." If you need to work, you may need to go longer between ice treatments. You should plan to have the area ice packed AT LEAST one fourth of the time. The ice should be applied over the wrap, tape, or splint, or over a layer of cloth -- not directly against the skin. Some ice bags have a built-in cloth and can be put directly on the skin. Acetaminophen Acetaminophen may be taken for pain relief or fever control. It's much safer than aspirin, offering a wider range of "safe" dosages. It is safe during . Some brand names are Tylenol, Panadol, Datril, Anacin 3, Tempra, and Liquiprin. Acetaminophen can be repeated every four hours. The following are maximum recommended dosages: WEIGHT Dose Drops Elixir Chewable( 80mg) (LBS.) drprs=droppers tsp=teaspoon 6 40 mg .4 ml (1/2) 6-11 80 mg .8 ml (full) 1/2 tsp 1 tab 12-16 120 mg 1 1/2 drprs 3/4 tsp 1 1/2 tabs 17-23 160 mg 2 drprs 1 tsp 2 tabs 24-30 240 mg 3 drprs 1 1/2 tsp 3 tabs 30-35 320 mg 2 tsp 4 tabs 36-41 360 mg 2 1/4 tsp 4 1 /2 tabs 42-47 400 mg 2 1/2 tsp 5 tabs 48-53 480 mg 3 tsp 6 tabs 54-59 520 mg 3 1/4 tsp 6 1 /2 tabs 60-64 560 mg 3 1/2 tsp 7 tabs 65-70 600 mg 3 3/4 tsp 7 1 /2 tabs 71-76 640 mg 4 tsp 8 tabs 77-82 720 mg 4 1/2 tsp 9 tabs 83-88 800 mg 5 tsp 10 tabs >89 pounds or adults 650 mg to 900 mg Acetaminophen can be repeated every four hours. Maximum daily dose not to exceed 4000 mg. These maximum recommended dosages are slightly higher than the dosages written on the product container, but these dosages are very safe and well below the toxic dosage for acetaminophen. ANTIBIOTIC OINTMENT PROTECTION: After cleansing, you should apply a thin coating of antibiotic ointment ( Bacitracin, not Neosporin) to the wounds at least three times daily. This lessens infection risk, and may decrease the amount of scarring. Use a q-tip or dull butter knife, not your finger, to apply this ointment. Any debris or ooze which builds up in the ointment should be gently rubbed off with a sterile gauze pad. Harder crusting may need to be gently scrubbed off with a clean wash cloth with soap and warm water, perhaps applying a warm, wet wash cloth to the wound for ten minutes first. Development of redness, severe itching, or blistering may mean allergy to the ointment. See the doctor. FOLLOW-UP CARE: Your sutures should be removed in 5 days. To facilitate a timely removal of your sutures, you may return to the Emergency Department at [facility]. You do not need to call for an appointment, but the best time to come in for suture removal is early in the morning. If you have been referred to another physician for follow-up care, call that physicians office for an appointment as you were instructed. If you experience a significant change in your laceration, or if you are concerned there may be an infection (swelling, redness, drainage, increasing tenderness, red streaks, tender lumps in the armpit or groin above the laceration, or fever) , return to the Emergency Department immediately re-evaluation. Referrals: LAURENT RIDLEY MD [ACTIVE STAFF] - Follow up in 3-5 days
[2016-05-07 10:47] VITALS: BP 134/66
== END 2016-05-07 10:45 | disposition home or self-care (01) ==
LOC: ER 08:17
PROC: 0HQ1XZZ Repair Face Skin, External Approach (ICD-10-PCS; principal; 2016-05-07)
DX: S01.111A Laceration without foreign body of right eyelid and periocular area, initial encounter (principal); S80.211A Abrasion, right knee, initial encounter; W01.0XXA Fall on same level from slipping, tripping and stumbling without subsequent striking against object, initial encounter; Y92.009 Unspecified place in unspecified non-institutional (private) residence as the place of occurrence of the external cause; R42 Dizziness and giddiness; I10 Essential (primary) hypertension; Z85.3 Personal history of malignant neoplasm of breast
CPT/HCPCS: 12011; 99283; 70450; 70486; J3490

== ENCOUNTER 2016-05-12 16:10 | Emergency (ER) | payer MEDICARE, OTHER ==
--- NOTE | 2016-05-12 16:44 | ER Document Report ---
ED Medical Screen (RME) - General Stated Complaint: FACIAL,HAND TINGLING Time seen by provider: 16:44 Mode of Arrival: Ambulatory Information source: Patient Notes: 86-year-old female complaining of tingling in all 10 of her fingers and both sets of her toes for a week. She also has episodes of dizziness. Her cardiac doctor- dr. santiago sent her to the emergency room to be checked out for possible mini strokes. 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 He was also seen in the emergency department May 07 after falling and the CT showed no acute changes I have greeted and performed a rapid initial assessment of this patient. A comprehensive ED assessment, evaluation of the patient, analysis of test results , and completion of the medical decision making process will be conducted by additional ED providers. TRAVEL OUTSIDE OF THE [place] IN LAST 30 DAYS: No - Related Data Allergies/Adverse Reactions: No Known Allergies Allergy (Verified 05/07/16 08:21) Past Medical History - Past Medical History Cardiac Medical History: Reports: Hx Hypertension Renal/ Medical History: Denies: Hx Peritoneal Dialysis Malignancy Medical History: Reports: Hx Breast Cancer GI Medical History: Reports: Hx Gastroesophageal Reflux Disease Psychiatric Medical History: Denies: Hx Depression Past Surgical History: Reports: Hx Mastectomy - Right mastectomy with axillary node dissection - Immunizations Hx Diphtheria, Pertussis, Tetanus Vaccination: Yes Physical Exam - Vital signs Vitals: Temp Pulse Resp BP Pulse Ox 98.0 F 91 14 116/59 L 96 05/12/16 16:16 05/12/16 16:16 05/12/16 16:16 05/12/16 16:16 05/12/16 16:16 Course - Vital Signs Vital signs: Temp Pulse Resp BP Pulse Ox 98.0 F 91 14 116/59 L 96 05/12/16 16:16 05/12/16 16:16 05/12/16 16:16 05/12/16 16:16 05/12/16 16:16
[2016-05-12 17:35] LABS: PROTHROMBIN TIME 13.5 SEC (11.4-15.4)
[2016-05-12 17:36] LABS: PARTIAL THROMBOPLASTIN TIME 23.6 SEC (23.5-35.8)
[2016-05-12 17:44] LABS: ABSOLUTE LYMPHOCYTES (AUTO) 0.5 10^3/uL (0.5-4.7); ABSOLUTE MONOCYTES (AUTO) 0.1 10^3/uL (0.1-1.4); ABSOLUTE NEUT (AUTO) 6.3 10^3/uL (1.7-8.2); EOSINOPHILS % (AUTO) 0.1 % (0-6); HEMATOCRIT 34.9 % (36.0-47.0); HEMOGLOBIN 11.5 g/dL (12.0-15.5); HGB HCT DIFFERENCE -0.4; LYMPHOCYTES % (AUTO) 7.4 % (13-45); MEAN CORPUSCULAR HEMOGLOBIN 34.5 pg (27.0-33.4); MEAN CORPUSCULAR VOLUME 105 fl (80-97); RED BLOOD COUNT 3.34 10^6/uL (3.72-5.28); RED CELL DISTRIBUTION WIDTH 18.9 % (11.5-14.0); SEGMENTED NEUTROPHILS % (AUTO) 91.5 % (42-78); WHITE BLOOD COUNT 6.9 10^3/uL (4.0-10.5)
[2016-05-12 17:51] LABS: ALANINE AMINOTRANSFERASE 26 U/L (9-52); ALBUMIN 3.5 g/dL (3.5-5.0); ALKALINE PHOSPHATASE 48 U/L (38-126); ANION GAP 10 (5-19); ASPARTATE AMINO TRANSFERASE 17 U/L (14-36); BILIRUBIN,TOTAL 0.8 mg/dL (0.2-1.3); BLOOD UREA NITROGEN 22 mg/dL (7-20); CALCIUM 8.8 mg/dL (8.4-10.2); CARBON DIOXIDE 24 mmol/L (22-30); CHLORIDE 105 mmol/L (98-107); CREATININE RESULT 0.85 mg/dL (0.52-1.25); GLUCOSE 206 mg/dL (75-110); POTASSIUM 4.6 mmol/L (3.6-5.0); SODIUM 139.2 mmol/L (137-145); TOTAL PROTEIN 6.3 g/dL (6.3-8.2)
[2016-05-12 17:52] LABS: CREATINE KINASE < 20 U/L (30-135)
[2016-05-12 18:03] LABS: CREATINE KINASE MB 0.29 ng/mL (<4.55)
[2016-05-12 18:04] LABS: TROPONIN I < 0.012 ng/mL
--- NOTE | 2016-05-12 18:14 | ER Document Report ---
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 Patient notes the tingling only occurs when she squeezes her fingers. Denies any weakness numbness otherwise. Patient denies any chest pain shortness breath difficulty breathing TRAVEL OUTSIDE OF THE [place] IN LAST 30 DAYS: No - HPI Onset: Last week Onset/Duration: Intermittent Quality of pain: No pain Severity: Mild Pain Level: Denies Associated symptoms: Other Exacerbated by: Other - When she squeezes her fingers Relieved by: Denies Similar symptoms previously: Yes Recently seen / treated by doctor: Yes - Related Data Allergies/Adverse Reactions: No Known Allergies Allergy (Verified 05/07/16 08:21) Past Medical History - General Information source: Patient - Social History Smoking Status: Never Smoker Cigarette use (# per day): No Chew tobacco use (# tins/day): No Smoking Education Provided: No Family History: Malignancy Patient has suicidal ideation: No Patient has homicidal ideation: No - Past Medical History Cardiac Medical History: Reports: Hx Hypertension Renal/ Medical History: Denies: Hx Peritoneal Dialysis Malignancy Medical History: Reports: Hx Breast Cancer GI Medical History: Reports: Hx Gastroesophageal Reflux Disease Psychiatric Medical History: Denies: Hx Depression Past Surgical History: Reports: Hx Mastectomy - Right mastectomy with axillary node dissection - Immunizations Hx Diphtheria, Pertussis, Tetanus Vaccination: Yes Review of Systems - Review of Systems Notes: PHYSICAL EXAMINATION: GENERAL: Well-appearing, well-nourished and in no acute distress. HEAD: Ecchymosis of the right orbital region EYES: Pupils equal round and reactive to light, extraocular movements intact, conjunctiva are normal. ENT: Nares patent, oropharynx clear without exudates. Moist mucous membranes. NECK: Normal range of motion, supple without lymphadenopathy LUNGS: Breath sounds clear to auscultation bilaterally and equal. No wheezes rales or rhonchi. HEART: Regular rate and rhythm without murmurs ABDOMEN: Soft, nontender, nondistended abdomen. No guarding, no rebound. No masses appreciated. Female : deferred Musculoskeletal: Normal range of motion, no pitting or edema. No cyanosis. NEUROLOGICAL: Cranial nerves grossly intact. Normal speech, normal gait. Normal sensory, motor exams PSYCH: Normal mood, normal affect. SKIN: Warm, Dry, normal turgor, no rashes or lesions noted. Physical Exam - Vital signs Vitals: Temp Pulse Resp BP Pulse Ox 98.0 F 91 14 116/59 L 96 05/12/16 16:16 05/12/16 16:16 05/12/16 16:16 05/12/16 16:16 05/12/16 16:16 Course - Re-evaluation Re-evalutation: 05/12/16 18:[address] Patterson who agrees todays symptoms do not sound like a stroke 05/12/16 23:16 Given that the patient's presentation does not appear to have any specific symptoms similar to a CVA I do not expect any life-threatening issues. Patient is under a lot of stress, and does appear to have paresthesias secondary to movement. Therefore I do not believe there is any life-threatening issues, i reviewed patients previous imaging and note only 1 cva, pt has already been encouraged to see neurologst and daughter will have her go to [facility] for follow up. After performing a Medical Screening Examination, I estimate there is LOW risk for INTRACRANIAL HEMORRHAGE, ISCHEMIC CVA, MALIGNANT DYSRHYTHMIA, ACUTE CORONARY SYNDROME, MENINGITIS, PULMONARY EMBOLISM, or SEPSIS thus I consider the discharge disposition reasonable. The patient and I have discussed the diagnosis and risks, and we agree with discharging home with close follow-up with the understanding that symptoms and presentations can change. We also discussed returning to the Emergency Department immediately if new or worsening symptoms occur. We have discussed the symptoms which are most concerning (e.g., changing or worsening pain, weakness, vomiting, fever) that necessitate immediate return. - Vital Signs Vital signs: Temp Pulse Resp BP Pulse Ox 97.7 F 86 16 121/83 97 05/12/16 18:03 05/12/16 18:00 05/12/16 18:03 05/12/16 18:03 05/12/16 18:03 - Laboratory Result Diagrams: 05/12/16 17:20 05/12/16 17:20 Laboratory results interpreted by me: 05/12/16 05/12/16 17:20 17:20 RBC 3.34 L Hgb 11.5 L Hct 34.9 L MCV 105 H MCH 34.5 H RDW 18.9 H Seg Neutrophils % 91.5 H Lymphocytes % 7.4 L Monocytes % 1.0 L BUN 22 H Glucose 206 H Creatine Kinase < 20 L - Diagnostic Test Radiology reviewed: Image reviewed, Reports reviewed - EKG Interpretation by Me EKG shows normal: Sinus rhythm, [place], Intervals, QRS Complexes Discharge - Discharge Clinical Impression: Neuropathy Eyebrow laceration Qualifiers: Encounter type: subsequent encounter Laterality: right Qualified Code(s): S01.111D - Laceration without foreign body of right eyelid and periocular area, subsequent encounter Condition: Stable Disposition: HOME, SELF-CARE Instructions: Neuropathy ([facility]) Additional Instructions: Follow up with your physician tomorrow for further care or return to the ED IMMEDIATELY if symptoms worsen or new concerns occur Referrals: LAURENT RIDLEY MD [Primary Care Provider] - Follow up as needed
[2016-05-12 18:42] VITALS: BP 121/83
--- NOTE | 2016-05-12 22:45 | EKG REPORT ---
SEVERITY:- NORMAL ECG - SINUS RHYTHM : Confirmed by: Jr Leary 12-May-2016 22:44:36
== END 2016-05-12 18:45 | disposition home or self-care (01) ==
LOC: ER 16:10
DX: S01.111D Laceration without foreign body of right eyelid and periocular area, subsequent encounter (principal); W19.XXXD Unspecified fall, subsequent encounter; G62.9 Polyneuropathy, unspecified; I10 Essential (primary) hypertension; Z86.73 Personal history of transient ischemic attack (TIA), and cerebral infarction without residual deficits; Z85.3 Personal history of malignant neoplasm of breast
CPT/HCPCS: 36415; 70450; 71010; 80053; 82550; 82553; 84484; 85025; 85610; 85730; 93005; 93010; 99284

== ENCOUNTER → 2017-03-10 | Day surgery (SDC) | payer MEDICARE, OTHER ==
[~2017-03-10] MED LIST: LIDOCAINE 1%/EPINEPHRINE INJ 20 ML VIAL ONE
--- NOTE | 2017-03-15 11:11 | RADIOLOGY REPORT (SQ) ---
EXAM DESCRIPTION: STEREO BREAST BX; LEFT DIG DX MAMMO NO CHG; STEREO BREAST BX EACH ADDT'L COMPLETED DATE/TIME: 03/10/2017 12:58 pm; 03/10/2017 1:22 pm; 03/10/2017 12:59 pm REASON FOR STUDY: MICROCALCS (R92.0), LUMP IN LEFT BREAST (N63.20), HX BREAST CA (Z85.3); LEFT BREAS T; R92.2 N63.20 UNSPECIFIED LUMP IN THE LEFT BREAST, UNSPECIFIED QUAD Z85.3 PERSONAL HISTORY OF MAL IGNANT NEOPLASM OF BREAST R92.0 MAMMOGRAPHIC MICROCALCIFICATION FOUND ON DX IMAGING OF COMPARISON: 02/05/2017 TECHNIQUE: Vacuum-assisted stereotactic-guided biopsy of the lesion in the left breast. Serial progr ess stereotactic and single digital images acquired. PROCEDURE: The procedure was discussed with the patient, including possible complications such as bleeding, infection, nondiagnostic sample or possible findings such as atypical ductal hyperplasia wh ich would require additional surgery. Possible clip placement was explained. The patient agreed t o the procedure. The patient was placed prone on the stereotactic table. The lesions in the breast were localized st ereotactically. The skin of the left breast was prepped in sterile fashion. LEFT breast 12 o'clock position 6 cm from the nipple: Superficial and deep local anesthesia was provided. A small incision was made in the skin and the b iopsy probe was advanced to the target. Using the vacuum-assisted core biopsy device, multiple core specimens were obtained. Continuous low dose infusion of local anesthesia was used during the proced ure. Using qahsziwm-vu-tjycixzc technique a pellet clip was deployed at the biopsy site. Mammographi c image confirmed presence of the clip. The probe was then removed and hemostasis obtained with ma nual compression. A specimen radiograph was obtained. The radiograph demonstrated calcifications of concern in the bio psy tissue. LEFT breast 12 o'clock position 4 cm from the nipple: Superficial and deep local anesthesia was provided. A small incision was made in the skin and the b iopsy probe was advanced to the target. Using the vacuum-assisted core biopsy device, multiple core specimens were obtained. Continuous low dose infusion of local anesthesia was used during the proced ure. Using tcakvpvv-lz-wqwhcuve technique a barrel clip was deployed at the biopsy site. Mammographi c image confirmed presence of the clip. The probe was then removed and hemostasis obtained with ma nual compression. A specimen radiograph was obtained. The radiograph demonstrated calcifications of concern in the biop sy tissue. A compression bandage was applied. Postoperative instructions were explained to the patient. POST-PROCEDURE TWO VIEW DIGITAL MAMMOGRAM: An additional two view mammogram was recorded in the [facility] mammographic suite. Marker clip is present at the biopsy site. LIMITATIONS: None. 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 POST PROCEDURE MAMMOGRAMS FOR MARKER PLACEMENT: Yes IMPRESSION: SUCCESSFUL STEREOTACTIC-GUIDED BIOPSY OF THE LESION IN THE LEFT BREAST. BIOPSY RESULTS ARE CONCORDANT WITH IMAGING FINDINGS. 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 FOLLOW-UP: PATIENT CAN RESUME ROUTINE SCREENING SCHEDULE DETERMINED BY HER AND HER PHP. NOTIFICATION: THE PATIENT HAS BEEN PERSONALLY NOTIFIED OF THE RESULTS BY THE BREAST INTERVENTIONAL TE AM. ADDITIONAL INTERVENTION, IF NEEDED, HAS BEEN SCHEDULED. BI-RADS 6 Known biopsy-proven malignancy. Appropriate action should be taken. COMMENT: Patient medication list reviewed: Yes- Quality ID# [id number]:Eligible professional attests to doc umenting in the medical record they obtained, updated, or reviewed the patient's current medications. These results were discussed with Alexus at Dr. Magana's office, 1100 hours 03/15/2017. Findings wer e also discussed with the patient's daughter. TECHNICAL DOCUMENTATION: JOB ID: [id number] [employer]- All Rights Reserved
--- NOTE | 2017-03-15 11:11 | RADIOLOGY REPORT (SQ) ---
EXAM DESCRIPTION: STEREO BREAST BX; LEFT DIG DX MAMMO NO CHG; STEREO BREAST BX EACH ADDT'L COMPLETED DATE/TIME: 03/10/2017 12:58 pm; 03/10/2017 1:22 pm; 03/10/2017 12:59 pm REASON FOR STUDY: MICROCALCS (R92.0), LUMP IN LEFT BREAST (N63.20), HX BREAST CA (Z85.3); LEFT BREAS T; R92.2 N63.20 UNSPECIFIED LUMP IN THE LEFT BREAST, UNSPECIFIED QUAD Z85.3 PERSONAL HISTORY OF MAL IGNANT NEOPLASM OF BREAST R92.0 MAMMOGRAPHIC MICROCALCIFICATION FOUND ON DX IMAGING OF COMPARISON: 02/05/2017 TECHNIQUE: Vacuum-assisted stereotactic-guided biopsy of the lesion in the left breast. Serial progr ess stereotactic and single digital images acquired. PROCEDURE: The procedure was discussed with the patient, including possible complications such as bleeding, infection, nondiagnostic sample or possible findings such as atypical ductal hyperplasia wh ich would require additional surgery. Possible clip placement was explained. The patient agreed t o the procedure. The patient was placed prone on the stereotactic table. The lesions in the breast were localized st ereotactically. The skin of the left breast was prepped in sterile fashion. LEFT breast 12 o'clock position 6 cm from the nipple: Superficial and deep local anesthesia was provided. A small incision was made in the skin and the b iopsy probe was advanced to the target. Using the vacuum-assisted core biopsy device, multiple core specimens were obtained. Continuous low dose infusion of local anesthesia was used during the proced ure. Using sqaohvlr-lp-empnkbga technique a pellet clip was deployed at the biopsy site. Mammographi c image confirmed presence of the clip. The probe was then removed and hemostasis obtained with ma nual compression. A specimen radiograph was obtained. The radiograph demonstrated calcifications of concern in the bio psy tissue. LEFT breast 12 o'clock position 4 cm from the nipple: Superficial and deep local anesthesia was provided. A small incision was made in the skin and the b iopsy probe was advanced to the target. Using the vacuum-assisted core biopsy device, multiple core specimens were obtained. Continuous low dose infusion of local anesthesia was used during the proced ure. Using tgplzkpq-jp-pcjlkjyu technique a barrel clip was deployed at the biopsy site. Mammographi c image confirmed presence of the clip. The probe was then removed and hemostasis obtained with ma nual compression. A specimen radiograph was obtained. The radiograph demonstrated calcifications of concern in the biop sy tissue. A compression bandage was applied. Postoperative instructions were explained to the patient. POST-PROCEDURE TWO VIEW DIGITAL MAMMOGRAM: An additional two view mammogram was recorded in the [facility] mammographic suite. Marker clip is present at the biopsy site. LIMITATIONS: None. 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 POST PROCEDURE MAMMOGRAMS FOR MARKER PLACEMENT: Yes IMPRESSION: SUCCESSFUL STEREOTACTIC-GUIDED BIOPSY OF THE LESION IN THE LEFT BREAST. BIOPSY RESULTS ARE CONCORDANT WITH IMAGING FINDINGS. 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 FOLLOW-UP: PATIENT CAN RESUME ROUTINE SCREENING SCHEDULE DETERMINED BY HER AND HER PHP. NOTIFICATION: THE PATIENT HAS BEEN PERSONALLY NOTIFIED OF THE RESULTS BY THE BREAST INTERVENTIONAL TE AM. ADDITIONAL INTERVENTION, IF NEEDED, HAS BEEN SCHEDULED. BI-RADS 6 Known biopsy-proven malignancy. Appropriate action should be taken. COMMENT: Patient medication list reviewed: Yes- Quality ID# [id number]:Eligible professional attests to doc umenting in the medical record they obtained, updated, or reviewed the patient's current medications. These results were discussed with Alexus at Dr. Magana's office, 1100 hours 03/15/2017. Findings wer e also discussed with the patient's daughter. TECHNICAL DOCUMENTATION: JOB ID: [id number] [employer]- All Rights Reserved
== END ==
LOC: RAD 09:57
PROVIDERS: ATTEND Internal Medicine Medical Oncology
PROC: 0HBU3ZX Excision of Left Breast, Percutaneous Approach, Diagnostic (ICD-10-PCS; principal; 2017-03-10)
DX: R92.0 Mammographic microcalcification found on diagnostic imaging of breast (principal); N63.20 Unspecified lump in the left breast, unspecified quadrant; Z85.3 Personal history of malignant neoplasm of breast; R92.2 Inconclusive mammogram
CPT/HCPCS: 88305 ×2; 88342; 19081; 19082; J3490

== ENCOUNTER 2017-06-16 08:25 | Day surgery (SDC) | payer MEDICARE, OTHER ==
[2017-06-09 10:36] LABS: HEMATOCRIT 35.2 % (36.0-47.0); HEMOGLOBIN 11.8 g/dL (12.0-15.5); MEAN CORPUSCULAR HEMOGLOBIN 34.5 pg (27.0-33.4); MEAN CORPUSCULAR HGB CONC 33.4 g/dL (32.0-36.0); MEAN CORPUSCULAR VOLUME 103 fl (80-97); PLATELET COUNT 171 10^3/uL (150-450); RED BLOOD COUNT 3.41 10^6/uL (3.72-5.28); RED CELL DISTRIBUTION WIDTH 14.6 % (11.5-14.0); WHITE BLOOD COUNT 4.5 10^3/uL (4.0-10.5)
[2017-06-09 10:54] LABS: ALANINE AMINOTRANSFERASE 18 U/L (9-52); ALBUMIN 3.6 g/dL (3.5-5.0); ALKALINE PHOSPHATASE 28 U/L (38-126); ANION GAP 5 (5-19); ASPARTATE AMINO TRANSFERASE 20 U/L (14-36); BILIRUBIN,DIRECT 0.2 mg/dL (0.0-0.4); BILIRUBIN,TOTAL 1.1 mg/dL (0.2-1.3); BLOOD UREA NITROGEN 11 mg/dL (7-20); CALCIUM 8.9 mg/dL (8.4-10.2); CARBON DIOXIDE 33 mmol/L (22-30); CHLORIDE 106 mmol/L (98-107); GLUCOSE 61 mg/dL (75-110); POTASSIUM 3.9 mmol/L (3.6-5.0); SODIUM 144.4 mmol/L (137-145); TOTAL PROTEIN 5.7 g/dL (6.3-8.2)
--- NOTE | 2017-06-09 23:20 | EKG REPORT ---
SEVERITY:- BORDERLINE ECG - SINUS RHYTHM BORDERLINE R WAVE PROGRESSION, ANTERIOR LEADS : Confirmed by: Jr Leary 09-Jun-2017 23:19:50
[~2017-06-16 08:25] MED LIST changes: +CEFAZOLIN 1 GM/D5W RTU 1 GM/50 ML RTUPB IV PRN; +LACTATED RINGERS 1000 ML IV PRN; +LIDOCAINE 0.5% INJ-PF (5 MG/ML) 50 ML SDV SUBCUT PRN; -LIDOCAINE 1%/EPINEPHRINE INJ 20 ML VIAL ONE
[2017-06-16] MEDS ORDERED: METHYLENE BLUE 50 MG/10 ML AMPULE ONE (08:46)
[2017-06-16] MEDS ORDERED: MICROFIBRILLAR COLLAGEN 1 GM PACK ONE (08:46)
[2017-06-16] MEDS ORDERED: LIDOCAINE 1%/EPINEPHRINE INJ 20 ML VIAL ONE (08:47)
[2017-06-16] MEDS ORDERED: FENTANYL CITRATE INJ/PF 100 MCG/2 ML AMPUL ONE ×2 (10:58)
[2017-06-16] MEDS ORDERED: LIDOCAINE 2% INJ-PF (20 MG/ML) 10 ML AMPUL ONE (10:58)
[2017-06-16] MEDS ORDERED: MIDAZOLAM 2 MG/2 ML INJ ONE (10:58)
[2017-06-16] MEDS ORDERED: EPHEDRINE SULFATE INJ 50 MG/1 ML AMPULE ONE (10:59)
[2017-06-16] MEDS ORDERED: ACETAMINOPHEN 100 ML IV ONE (10:59)
[2017-06-16] MEDS ORDERED: ONDANSETRON HCL INJ/PF 4 MG/2 ML SDV ONE (10:59)
[2017-06-16] MEDS ORDERED: DEXAMETHASONE SOD PHOSPHATE INJ 4 MG/1 ML VIAL ONE (10:59)
[2017-06-16] MEDS ORDERED: PROPOFOL INJ 200 MG/20 ML VIAL IV ONE (10:59)
[2017-06-16] MEDS ORDERED: OXYCODONE-ACETAMINOPHEN 5-325 MG TABLET PO PRN ×3 (12:06→12:34)
[2017-06-16] MEDS ORDERED: MEPERIDINE HCL/PF INJ 25 MG/1 ML DISP.SYRIN IV PRN (12:06)
[2017-06-16] MEDS ORDERED: DIPHENHYDRAMINE HCL 50 MG/ML VIAL IV PRN (12:06)
[2017-06-16] MEDS ORDERED: FENTANYL CITRATE INJ/PF 100 MCG/2 ML AMPUL IV PRN ×3 (12:06)
[2017-06-16] MEDS ORDERED: PROMETHAZINE HCL INJ 25 MG/1 ML VIAL IV PRN ×2 (12:06)
[2017-06-16] MEDS ORDERED: MORPHINE SULFATE 10 MG/ML INJ IV PRN (12:06)
--- NOTE | 2017-06-16 12:32 | Operative Report ---
Operative Report DATE OF SURGERY: 06/16/17 PREOPERATIVE DIAGNOSIS: 1. Multi focal DCIS left breast. 2. Remote history of an invasive right breast carcinoma, status post mastectomy POSTOPERATIVE DIAGNOSIS: Same OPERATION: Left simple mastectomy with drainage of chest wall SURGEON: CARLOS EDUARDO WASSERMAN 1ST PROCESSING ENGINEER: VIKA JAEGER ANESTHESIA: GA TISSUE REMOVED OR ALTERED: Left breast COMPLICATIONS: None ESTIMATED BLOOD LOSS: 10 cc INTRAOPERATIVE FINDINGS: See below PROCEDURE: The patient was seen in the preop ambulatory surgery area where a thorough discussion was had between Dr. Wasserman, the patient, the patient's daughter, and the patient's niece. Initially there was some uncertainty as to which operation we were to perform ;After a thorough review of the patient's known disease, multifocal DCIS in the left breast, I reiterated the value of proceeding with simple mastectomy with to ensure removal of all breast tissue which may contain occult deposits of DCIS previously undetected by preoperative imaging. The patient and family expressed their understanding and agreed to proceed. Patient was taken to the operating room where general anesthesia was induced. Left arm was abducted, left breast axilla and draped in sterile fashion. Surgical plan and surgical timeout were conducted Markings were made on the skin for a classic simple mastectomy. Patient's previous stereotactically directed core biopsies were performed at the 12 o' clock position of the left breast. Skin was anesthetized with 1% plain lidocaine. Superior skin flap was raised. During the dissection, we encountered what appeared to be 1 of the small stereotactically located clip markers. Therefore an additional thin strip of skin was excised along with the superior edge of the initial lesion, and the flap was taken all the way up to the subclavicular position. The inferior skin flap was raised uneventfully and the lateral pocket developed so that the breast could not be taken directly off of the pectoralis muscle and serratus anterior muscle including superficial fascia. This was performed all using electrocautery, gentle traction; small vessels were clipped or cauterized as encountered. The specimen was marked with a large long suture in the lateral position and a short suture in the superior position and sent with appropriate documentation to pathology for permanent analysis. We reinspected the left chest wall and there was no mechanical bleeding. A large Yuval drain was placed through the inframammary skin fold, secured to the skin with 2-0 Prolene suture, and the mastectomy incision closed with running 2- 0 Vicryl suture. Skin glue was applied. The operation was deemed complete, patient extubated, and taken to recovery room in stable condition. The physician shampoo assistant, Ms. Nagel, provided assistance during this case by: Assisting by retracting tissue, instillation of local anesthesia and closure of skin incisions.
--- NOTE | 2017-06-16 12:34 | Discharge Summary ---
Discharge Summary (SDC) - Discharge Final Diagnosis: DCIS left breast Date of Surgery: 06/16/17 Discharge Date: 06/16/17 Condition: Stable Treatment or Instructions: [facility] [address] [place] [id number] Care Instructions Following Your Mastectomy Activities: Resume normal activities when you feel comfortable. It is best to remain as active as possible to speed your recovery. It is common to experience some fatigue after surgery and you may find that short naps are helpful. Avoid strenuous activity such as weight lifting, tennis, etc at your surgical site for two weeks. Perform gentle arm exercises daily and do not favor your operative arm to due increased risk of mobility issues postoperatively. No driving for 7 days after surgery. Do not drive if you are taking pain medication other than Tylenol or Ibuprofen. No swimming, tub baths or soaking in a hot tub for 4 weeks. There are no dietary restrictions. Do not smoke as this impairs wound healing. Surgical Site care: Remove your dressing 48 hours after surgery. Leave the steri-strips underneath in place. You may shower after removing the dressing to include washing the wound with soap and water using your hands. Do not scrub the incision. Pat the area dry with a towel. You do not need to recover the wound although some patients find that they feel more comfortable using a light dressing for a few days to absorb any minimal drainage which may occur. Many patients also find that keeping a dressing around the drain exit site is helpful to absorb any drainage which may leak around the tubing. If you use a dressing in this manner change it at least every day. Do not use heating pad or apply an ice pack to the operative site. You may apply deodorant if you are careful to avoid getting it on the wound itself. Empty the bulbs attached to the drain every 12 hours and measure the fluid output separately from each drain. Please also strip each drain each time you empty it to prevent clogging. Keep a record of the output and bring this record with you each time you come to the office for postoperative care. A drain is ready to be removed when its output is 30 mL per 24 hours per drain for 2 consecutive days. Please call the office to inform our staff that you need to come in for drain removal. Medications: Take Motrin (ibuprofen) 600 mg to 800 mg every 8 hours around the clock. You may taper this medication as you experience less pain. Take narcotic pain control such as Tylenol #3 or Percocet one to tablets every six hours as needed for breakthrough pain. Do not take over the counter Tylenol if you are taking either Tylenol #3 or Percocet. Again, you cannot drive while taking narcotic pain medication. Resume all of your normal prescription medications after your surgery unless instructed otherwise. You may experience constipation after surgery while taking pain medications. If using a narcotic on a regular basis, take a stool softener such as Colace twice a day. It is helpful to stay hydrated by drinking lots of fluids. Walking is also helpful and is good exercise after surgery. If you need extra help, use Milk of Magnesia according to the directions on the package. Follow-up: Call our office at to make a follow-up appointment in 10-14 days. Your doctor will call to discuss the pathology report with you as soon as it is available. Concerns: If you had a sentinel lymph node biopsy with your mastectomy, your urine may have a greenish discoloration. This is normal and will resolve as the blue dye slowly leaves your system. If you notice significant leakage around the drains , this is not normal. The drains may be clogged. Please call our office to come in immediately for the drains to be checked. Some bruising may occur and will go away over time. If you have a fever of 101.5 or greater, chills, redness at the incision site, excessive drainage from your wound or severe pain not relieved by pain medication, call your doctor. A physician is available 24 hours a day 7 days a week in addition to regular office hours. If problems arise after normal office hours please call the hospital at . Please call if you have any questions or concerns. Prescriptions: Ketorolac Tromethamine [Toradol 10 mg Tablet] 10 mg PO Q6HP PRN #20 tablet PRN Reason: Referrals: LAURENT RIDLEY MD [Primary Care Provider] - Discharge Diet: As Tolerated Discharge Activity: Activity As Tolerated Report the Following to Your Physician Immediately: Increase in Pain, Fever over 101 Degrees, Unusual Bleeding, Redness, Drainage-Foul Smelling
[2017-06-16] MEDS ORDERED: FLUMAZENIL INJ 0.5 MG/5 ML VIAL ONE (14:46)
[2017-06-16 15:02] VITALS: BP 146/86
--- NOTE | 2017-06-16 16:40 | WOMENS IMAGING REPORT ---
EXAM DESCRIPTION: BREAST SPECIMEN COMPLETED DATE/TIME: 06/16/2017 4:07 pm REASON FOR STUDY: LT BREAST FOR CLIPS C50.912 MALIGNANT NEOPLASM OF UNSPECIFIED SITE OF LEFT FEMAL COMPARISON: Stereotactic images 03/10/2017, post left stereotactic biopsy mammograms 03/10/2017 TECHNIQUE: Specimen radiograph from breast procedure performed in the operating room. LIMITATIONS: None. FINDINGS: Mastectomy specimen and pathology tissue blocks were radiographed. The dumbbell-shaped clip placed during stereotactic biopsy 03/10/2017 is identified in the specimen. The bullet shaped clip placed during stereotactic biopsy 03/10/2017 is not identified. These findings were discussed with Dr. Murphy. IMPRESSION: Specimen radiograph. TECHNICAL DOCUMENTATION: JOB ID: [id number] Reading location - IP/workstation name: [email or web address]
[2017-06-16] MEDS ORDERED: SUCCINYLCHOLINE CHLORIDE INJ 200 MG/10 ML VIAL ONE (18:11)
== END 2017-06-16 14:45 | disposition home or self-care (01) ==
LOC: OROUT 08:25
PROVIDERS: ATTEND Surgery
PROC: 0HTU0ZZ Resection of Left Breast, Open Approach (ICD-10-PCS; principal; 2017-06-16 10:30)
DX: C50.912 Malignant neoplasm of unspecified site of left female breast (principal); E03.9 Hypothyroidism, unspecified; R01.1 Cardiac murmur, unspecified; Z85.3 Personal history of malignant neoplasm of breast; Z85.828 Personal history of other malignant neoplasm of skin; Z79.899 Other long term (current) drug therapy
CPT/HCPCS: 93005; 36415; 85027; 80053; 88342 ×2; 88307 ×2; 93010; 76098; 19303; J3490 ×3; J2250; J0690; J1100; J3010; J0330; J2405; J2704; J0131; 400; Q9968

== ENCOUNTER → 2017-10-19 | Outpatient (CLI) | payer MEDICARE, OTHER ==
--- NOTE | 2017-10-19 12:40 | RADIOLOGY REPORT (SQ) ---
EXAM DESCRIPTION: KNEE RIGHT 3 VIEWS COMPLETED DATE/TIME: 10/19/2017 10:41 am REASON FOR STUDY: PAIN IN RIGHT KNEE M25.561 PAIN IN RIGHT KNEE COMPARISON: None. NUMBER OF VIEWS: Two views. TECHNIQUE: AP, lateral, and sunrise patella radiographic images acquired of the right knee. LIMITATIONS: None. FINDINGS: MINERALIZATION: Normal. BONES: No acute fracture or dislocation. No worrisome bone lesions. JOINT: Joint space narrowing medial and patellofemoral compartments. Osteophytes medial compartment OTHER: No other significant finding. IMPRESSION: Osteoarthritis. TECHNICAL DOCUMENTATION: JOB ID: [id number] [employer]- All Rights Reserved Reading location - IP/workstation name: [email or web address]
== END ==
LOC: OD 10:25
PROVIDERS: ATTEND Family Medicine
DX: M25.561 Pain in right knee (principal)

== ENCOUNTER 2018-03-21 11:08 | Emergency (ER) | payer MEDICARE, OTHER ==
[2018-03-21] MEDS ORDERED: LIDOCAINE 2% URO-JET 5 ML KIT MM ONE (11:22)
--- NOTE | 2018-03-21 12:25 | RADIOLOGY REPORT (SQ) ---
EXAM DESCRIPTION: KUB/ABDOMEN (SINGLE VIEW) COMPLETED DATE/TIME: 03/21/2018 12:04 pm REASON FOR STUDY: constipation COMPARISON: None. NUMBER OF VIEWS: One view. TECHNIQUE: Supine radiographic image of the abdomen acquired. LIMITATIONS: None. FINDINGS: BOWEL GAS PATTERN: Normal bowel gas pattern. No dilated loops. CALCIFICATIONS: No suspicious calcifications. SOFT TISSUES: No gross mass or suggestion of organomegaly. HARDWARE: None in the abdomen. BONES: No acute fracture. No worrisome bone lesions. OTHER: No other significant finding. IMPRESSION: NO RADIOGRAPHIC EVIDENCE FOR ACUTE ABDOMINAL DISEASE. TECHNICAL DOCUMENTATION: JOB ID: [id number] [employer]- All Rights Reserved Reading location - IP/workstation name: [email or web address]
--- NOTE | 2018-03-21 14:40 | ER Document Report ---
ED General - General Chief Complaint: Constipation Stated Complaint: CONSTIPATION Time Seen by Provider: 03/21/18 11:20 TRAVEL OUTSIDE OF THE [place] IN LAST 30 DAYS: No - HPI Patient complains to provider of: Constipation Notes: Patient coming in for evaluation of constipation states that she has been unable to have bowel movement for the last 2 days that has been significant. Patient denies any fever chills nausea vomiting diarrhea patient states still placing flatus. Patient states she was given enemas at home. At time of discharge daughter did arrive giving further information that she is given her mother multiple enemas along with magnesium citrate. States patient complains of some stomach cramps - Related Data Allergies/Adverse Reactions: No Known Allergies Allergy (Verified 06/02/17 13:19) Past Medical History - Social History Smoking Status: Unknown if Ever Smoked Family History: Malignancy Patient has suicidal ideation: No Patient has homicidal ideation: No - Past Medical History Cardiac Medical History: Denies: Hx Coronary Artery Disease, Hx Heart Attack, Hx Hypertension Pulmonary Medical History: Reports: Hx Pneumonia - 2016 Denies: Hx Asthma, Hx Bronchitis, Hx COPD Neurological Medical History: Reports: Hx Cerebrovascular Accident - 2017. Denies: Hx Seizures Renal/ Medical History: Denies: Hx Peritoneal Dialysis Malignancy Medical History: Reports: Hx Breast Cancer GI Medical History: Reports: Hx Gastroesophageal Reflux Disease Musculoskeletal Medical History: Reports Hx Arthritis - HANDS Psychiatric Medical History: Denies: Hx Depression Past Surgical History: Reports: Hx Mastectomy - Right mastectomy with axillary node dissection - Immunizations Hx Diphtheria, Pertussis, Tetanus Vaccination: Yes Review of Systems - Review of Systems Constitutional: No symptoms reported EENT: No symptoms reported Cardiovascular: No symptoms reported Respiratory: No symptoms reported Gastrointestinal: Constipation Genitourinary: No symptoms reported Female Genitourinary: No symptoms reported Musculoskeletal: No symptoms reported Skin: No symptoms reported Hematologic/Lymphatic: No symptoms reported Neurological/Psychological: No symptoms reported Physical Exam - Vital signs Vitals: Temp Pulse Resp BP Pulse Ox 99.4 F 70 16 153/69 H 99 03/21/18 11:09 03/21/18 11:09 03/21/18 11:09 03/21/18 11:09 03/21/18 11:09 Interpretation: Normal - General General appearance: Appears well, Alert - HEENT Head: Normocephalic, Atraumatic Eyes: Normal Pupils: PERRL - Respiratory Respiratory status: No respiratory distress Chest status: Nontender Breath sounds: Normal Chest palpation: Normal - Cardiovascular Rhythm: Regular Heart sounds: Normal auscultation Murmur: No - Abdominal Inspection: Normal Distension: No distension Bowel sounds: Normal Tenderness: Nontender Organomegaly: No organomegaly - Rectal Notes: No bleeding no hemorrhoids no impaction of stool - Back Back: Normal, Nontender - Extremities General upper extremity: Normal inspection, Nontender, Normal color, Normal ROM, Normal temperature General lower extremity: Normal inspection, Nontender, Normal color, Normal ROM, Normal temperature, Normal weight bearing. No: Gricelda's sign - Neurological Neuro grossly intact: Yes Cognition: Normal Orientation: AAOx4 [employer] Coma Scale Eye Opening: Spontaneous [employer] Coma Scale Verbal: Oriented [place] Coma Scale Motor: Obeys Commands [employer] Coma Scale Total: 15 Speech: Normal Motor strength normal: LUE, RUE, LLE, RLE Sensory: Normal - Psychological Associated symptoms: Normal affect, Normal mood - Skin Skin Temperature: Warm Skin Moisture: Dry Skin Color: Normal Course - Re-evaluation Re-evalutation: 03/21/18 15:07 Patient is evaluation does not show overt constipation x-rays otherwise negative. Patient will be discharged home will encourage patient to drink plenty of fluids and to take Colace I did explain to the family but I would avoid any further laxative such as MiraLAX or magnesium citrate at this time that the patient does not have any abundant amount of stool in her colon and more likely some of the stomach cramping that she may be experiencing is from the use of the laxatives. - Vital Signs Vital signs: Temp Pulse Resp BP Pulse Ox 98.9 F 63 16 139/58 H 98 03/21/18 13:38 03/21/18 13:38 03/21/18 13:38 03/21/18 13:38 03/21/18 13:38 Discharge - Discharge Clinical Impression: Constipation Qualifiers: Constipation type: unspecified constipation type Qualified Code(s): K59.00 - Constipation, unspecified Additional Instructions: Patient's x-rays today do not show any signs of fracture or critical pathology. There is only a mild amount of stool in the left side of the colon: Is mostly filled with gas rectal examination does not reveal any signs of a rectal impaction I would recommend no more neck citrate or MiraLAX I would recommend gentle stool softeners with encouraging the patient to drink plenty of fluids patient should follow-up with her primary care physician in 3-4 days. Prescriptions: Docusate Sodium [Colace 100 mg Capsule] 100 mg PO DAILY #30 capsule Referrals: LAURENT RIDLEY MD [Primary Care Provider] - Follow up as needed
[2018-03-21 16:08] VITALS: BP 121/74
== END 2018-03-21 16:11 | disposition home or self-care (01) ==
LOC: ER 11:08
DX: K59.00 Constipation, unspecified (principal)
CPT/HCPCS: 74018; 99283

== ENCOUNTER 2018-05-27 13:00 | Emergency (ER) | payer MEDICARE, OTHER ==
--- NOTE | 2018-05-27 13:45 | RADIOLOGY REPORT (SQ) ---
EXAM DESCRIPTION: CT HEAD WITHOUT COMPLETED DATE/TIME: 05/27/2018 1:39 pm REASON FOR STUDY: stroke s/s COMPARISON: 05/12/2016 TECHNIQUE: Axial images acquired through the brain without intravenous contrast. Images reviewed wi th bone, brain and subdural windows. Additional sagittal and coronal reconstructions were generated. Images stored on PACS. All CT scanners at this facility use dose modulation, iterative reconstruction, and/or weight based d osing when appropriate to reduce radiation dose to as low as reasonably achievable (ALARA). [facility]: Dose Right [facility]: CareDose [facility]: Dose Right [facility]: Teradose 4D [facility]: Smart Centrifuge Systems RADIATION DOSE: CT Rad equipment meets quality standard of care and radiation dose reduction techniq ues were employed. CTDIvol: 53.2 mGy. DLP: 911 mGy-cm. mGy. LIMITATIONS: None. FINDINGS: VENTRICLES: Normal size and contour. CEREBRUM: No masses. No hemorrhage. No midline shift. No evidence for acute infarction. Normal gra y/white matter differentiation. No areas of low density in the white matter. CEREBELLUM: No masses. No hemorrhage. No alteration of density. No evidence for acute infarction. EXTRAAXIAL SPACES: No fluid collections. No masses. ORBITS AND GLOBE: No intra- or extraconal masses. Normal contour of globe without masses. CALVARIUM: No fracture. PARANASAL SINUSES: No fluid or mucosal thickening. SOFT TISSUES: No mass or hematoma. OTHER: No other significant finding. IMPRESSION: No acute intracranial pathology. No CT evidence of acute stroke or hemorrhage. EVIDENCE OF ACUTE STROKE: NO. COMMENT: Quality ID # [id number]: Final reports with documentation of one or more dose reduction techniques (e.g., Automated exposure control, adjustment of the mA and/or kV according to patient size, use of iterative reconstruction technique) TECHNICAL DOCUMENTATION: JOB ID: [id number] [employer]- All Rights Reserved Reading location - IP/workstation name: [email or web address]
--- NOTE | 2018-05-27 13:52 | RADIOLOGY REPORT (SQ) ---
EXAM DESCRIPTION: CHEST SINGLE VIEW COMPLETED DATE/TIME: 05/27/2018 1:45 pm REASON FOR STUDY: stroke s/s COMPARISON: 05/12/2016 EXAM PARAMETERS: NUMBER OF VIEWS: One view. TECHNIQUE: Single frontal radiographic view of the chest acquired. RADIATION DOSE: NA LIMITATIONS: None. FINDINGS: LUNGS AND PLEURA: No opacities, masses or pneumothorax. No pleural effusion. MEDIASTINUM AND HILAR STRUCTURES: No masses. Contour normal. HEART AND VASCULAR STRUCTURES: Heart normal in size. Normal vasculature. BONES: No acute findings. HARDWARE: None in the chest. OTHER: No other significant finding. IMPRESSION: NO ACUTE RADIOGRAPHIC FINDING IN THE CHEST. TECHNICAL DOCUMENTATION: JOB ID: [id number] [employer]- All Rights Reserved Reading location - IP/workstation name: [email or web address]
[2018-05-27 14:23] LABS: ABSOLUTE BASOPHILS # (AUTO) 0.1 10^3/uL (0.0-0.2); ABSOLUTE EOSINOPHILS # (AUTO) 0.3 10^3/uL (0.0-0.6); ABSOLUTE LYMPHOCYTES (AUTO) 1.3 10^3/uL (0.5-4.7); ABSOLUTE MONOCYTES (AUTO) 0.4 10^3/uL (0.1-1.4); ABSOLUTE NEUT (AUTO) 2.4 10^3/uL (1.7-8.2); BASOPHILS % (AUTO) 1.4 % (0-2); EOSINOPHILS % (AUTO) 7.6 % (0-6); HEMATOCRIT 34.5 % (36.0-47.0); HEMOGLOBIN 11.6 g/dL (12.0-15.5); LYMPHOCYTES % (AUTO) 29.2 % (13-45); MEAN CORPUSCULAR HEMOGLOBIN 35.1 pg (27.0-33.4); MEAN CORPUSCULAR HGB CONC 33.8 g/dL (32.0-36.0); MEAN CORPUSCULAR VOLUME 104 fl (80-97); MONOCYTES % (AUTO) 9.2 % (3-13); PLATELET COUNT 212 10^3/uL (150-450); RED BLOOD COUNT 3.31 10^6/uL (3.72-5.28); RED CELL DISTRIBUTION WIDTH 15.5 % (11.5-14.0); SEGMENTED NEUTROPHILS % (AUTO) 52.6 % (42-78); TOTAL CELLS COUNTED % (AUTO) 100 %; WHITE BLOOD COUNT 4.5 10^3/uL (4.0-10.5)
[2018-05-27 14:27] LABS: INTERNATIONAL RATION (INR) 0.97; PROTHROMBIN TIME 13.3 SEC (11.4-15.4)
[2018-05-27 14:28] LABS: PARTIAL THROMBOPLASTIN TIME 31.6 SEC (23.5-35.8)
[2018-05-27 14:45] LABS: ALANINE AMINOTRANSFERASE 15 U/L (9-52); ALBUMIN 3.4 g/dL (3.5-5.0); ALKALINE PHOSPHATASE 42 U/L (38-126); ANION GAP 6 (5-19); ASPARTATE AMINO TRANSFERASE 18 U/L (14-36); BILIRUBIN,DIRECT 0.2 mg/dL (0.0-0.4); BILIRUBIN,TOTAL 0.8 mg/dL (0.2-1.3); BLOOD UREA NITROGEN 9 mg/dL (7-20); CALCIUM 8.6 mg/dL (8.4-10.2); CARBON DIOXIDE 27 mmol/L (22-30); CHLORIDE 106 mmol/L (98-107); CREATINE KINASE 21 U/L (30-135); GLUCOSE 91 mg/dL (75-110); POTASSIUM 3.8 mmol/L (3.6-5.0); SODIUM 139.2 mmol/L (137-145); TOTAL PROTEIN 6.1 g/dL (6.3-8.2)
[2018-05-27 14:52] LABS: CREATINE KINASE MB 0.38 ng/mL (<4.55)
[2018-05-27 14:55] LABS: TROPONIN I < 0.012 ng/mL
[2018-05-27] MEDS ORDERED: ASPIRIN 81 MG TABLET, CHEWABLE PO ONE (16:01)
[2018-05-27 16:09] LABS: APPEARANCE,URINE CLOUDY; BILIRUBIN,URINE NEGATIVE (NEGATIVE); COLOR,URINE YELLOW; GLUCOSE, URINE NEGATIVE (NEGATIVE); KETONES,URINE NEGATIVE (NEGATIVE); LEUKOCYTE ESTERASE,URINE LARGE (NEGATIVE); NITRITE,URINE NEGATIVE (NEGATIVE); PROTEIN,URINE NEGATIVE (NEGATIVE); URINE SPECIFIC GRAVITY 1.004; UROBILINOGEN,URINE NEGATIVE mg/dL (<2.0)
[2018-05-27] MEDS ORDERED: CEFTRIAXONE 1 GM/D5W RTU 1 GM/50 ML RTUPB IV ONE (16:53)
--- NOTE | 2018-05-27 17:23 | ER Document Report ---
Entered by VIRGIE NAVARRO SCRIBE 05/27/18 [id number] Acting as scribe for:MARCOS HORN DO ED General - General Chief Complaint: Weakness Stated Complaint: WEAKNESS Time Seen by Provider: 05/27/18 13:14 Primary Care Provider: SUKH SINGH PA-C [Primary Care Provider] - Follow up as needed Information source: Emergency Med Personnel, [facility] Records, Outside Facility Records Notes: 88-year-old female who presents to the emergency department today with co mplaints of "stroke-like symptoms". According to EMS, they were called to the patient's residence last night for "stroke-like symptoms" and at that time the family felt that transfer was not necessary as the patient's symptoms had resolved. The patient's symptoms "returned" again this morning. EMS reports subjective slurred speech according to family when they arrived today. EMS states the patient's speech did not seem to be slurred, just slow, which seems to be her baseline. EMS reports the patient complained of head tingling as well. Patient's only complaint now is that her right hand feels "cold" which she states is a chronic issue. TRAVEL OUTSIDE OF THE [place] IN LAST 30 DAYS: No - Related Data Allergies/Adverse Reactions: No Known Allergies Allergy (Verified 06/02/17 13:19) Past Medical History - General Information source: Patient, Emergency Med Personnel, [facility] Records - Social History Smoking Status: Unknown if Ever Smoked Frequency of alcohol use: None Drug Abuse: None Lives with: Family Family History: Reviewed & Not Pertinent, Malignancy Pulmonary Medical History: Reports: Hx Pneumonia - 2017 Neurological Medical History: Reports: Hx Cerebrovascular Accident - 2017, hx of multiple TIAs Malignancy Medical History: Reports: Hx Breast Cancer GI Medical History: Reports: Hx Gastroesophageal Reflux Disease Musculoskeletal Medical History: Reports Hx Arthritis - HANDS Past Surgical History: Reports: Hx Mastectomy - Right mastectomy with axillary node dissection - Immunizations Hx Diphtheria, Pertussis, Tetanus Vaccination: Yes Review of Systems - Review of Systems Constitutional: No symptoms reported EENT: No symptoms reported Cardiovascular: No symptoms reported Respiratory: No symptoms reported Gastrointestinal: No symptoms reported Genitourinary: No symptoms reported Female Genitourinary: No symptoms reported Musculoskeletal: See HPI, Other - complains that right hand feels "cold" which she states is chronic Skin: No symptoms reported Hematologic/Lymphatic: No symptoms reported Neurological/Psychological: See HPI, Tingling - top of head. denies: Headaches -: Yes All other systems reviewed and negative Physical Exam - Vital signs Vitals: Pulse Resp BP Pulse Ox 75 20 147/87 H 97 05/27/18 13:04 05/27/18 13:04 05/27/18 13:04 05/27/18 13:04 Course - Vital Signs Vital signs: Temp Pulse Resp BP Pulse Ox 75 16 128/62 H 100 05/27/18 13:04 05/27/18 15:01 05/27/18 15:01 05/27/18 15:01 - Laboratory Result Diagrams: 05/27/18 14:05 05/27/18 14:05 Laboratory results interpreted by me: 05/27/18 05/27/18 05/27/18 13:30 14:05 14:05 RBC 3.31 L Hgb 11.6 L Hct 34.5 L MCV 104 H MCH 35.1 H RDW 15.5 H Eosinophils % 7.6 H Creatine Kinase 21 L Total Protein 6.1 L Albumin 3.4 L Urine Blood SMALL H Ur Leukocyte Esterase LARGE H Discharge - Discharge Clinical Impression: UTI (urinary tract infection) Qualifiers: Urinary tract infection type: site unspecified Hematuria presence: with hematuria Qualified Code(s): N39.0 - Urinary tract infection, site not specified; R31.9 - Hematuria, unspecified Condition: Stable Disposition: HOME, SELF-CARE Additional Instructions: Please call your doctor for follow-up. Please return if you have any further concerns. This seems to be related to a urinary tract infection. Prescriptions: Aspirin [Aspirin 81 mg Chewable Tablet] 81 mg PO DAILY #30 tab Cephalexin Monohydrate [Keflex 500 mg Capsule] 500 mg PO TID 7 Days #21 capsule Referrals: SUKH SINGH PA-C [Primary Care Provider] - Follow up tomorrow Scribe Attestation: 05/27/18 17:23 I personally performed the services described in the documentation, reviewed and edited the documentation which was dictated to the scribe in my presence, and it accurately records my words and actions. I personally performed the services described in the documentation, reviewed and edited the documentation which was dictated to the scribe in my presence, and it accurately records my words and actions.
[2018-05-27 18:06] VITALS: BP 136/72
--- NOTE | 2018-05-27 23:03 | EKG REPORT ---
SEVERITY:- BORDERLINE ECG - SINUS RHYTHM BORDERLINE LEFT AXIS DEVIATION BORDERLINE T ABNORMALITIES, LATERAL LEADS : Confirmed by: Jr Leary 27-May-2018 23:02:41
== END 2018-05-27 18:20 | disposition home or self-care (01) ==
LOC: ER 13:00
DX: N39.0 Urinary tract infection, site not specified (principal); R31.9 Hematuria, unspecified; R40.0 Somnolence; R20.2 Paresthesia of skin
CPT/HCPCS: 93005; 36415; 87086; 82553; 82550; 84443; 85025; 85610; 85730; 87088; 80053; 81001; 84484; 87186; 71045; 70450; 93010; A9270; J0696

== ENCOUNTER → 2018-09-02 | Outpatient (CLI) | payer MEDICARE, OTHER ==
--- NOTE | 2018-09-02 15:44 | RADIOLOGY REPORT (SQ) ---
EXAM DESCRIPTION: HIP LEFT AP/LATERAL COMPLETED DATE/TIME: 09/02/2018 2:07 pm REASON FOR STUDY: PAIN IN LEFT HIP M25.552 PAIN IN LEFT HIP COMPARISON: None. NUMBER OF VIEWS: Two views. TECHNIQUE: AP pelvis and additional frog-leg view of the left hip. LIMITATIONS: None. FINDINGS: MINERALIZATION: Normal. LEFT HIP: No fracture or dislocation. No worrisome bone lesions. RIGHT HIP: No fracture or dislocation. No worrisome bone lesions. PUBIS AND ISCHIUM: No fracture. PELVIS: No fracture. SACRUM: No fracture or dislocation. No worrisome bone lesions. LOWER LUMBAR SPINE: No fracture or dislocation. No worrisome bone lesions. No significant disc disea se. SOFT TISSUES: No findings. OTHER: No other significant finding. IMPRESSION: NEGATIVE STUDY OF THE LEFT HIP AND PELVIS. NO RADIOGRAPHIC EVIDENCE OF ACUTE INJURY. TECHNICAL DOCUMENTATION: JOB ID: [id number] [employer]- All Rights Reserved Reading location - IP/workstation name: [email or web address]
== END ==
LOC: OD 12:54
PROVIDERS: ATTEND Family Medicine
DX: M25.552 Pain in left hip (principal)